=== PATIENT | female | born 1945 | race Caucasian/White ===

== ENCOUNTER 2016-11-23 10:46 | Inpatient (IN) | payer MEDICARE, OTHER ==
[~2016-11-23] VITALS: Ht 162.6 cm; Wt 94.0 kg
[2016-11-23] VITALS (29 sets, daily range): BP systolic 125–222; BP diastolic 66–96; PULSE 54–76; RESP 18–22; TEMP 97.8–98; O2SAT 88–97
--- NOTE | 2016-11-23 10:55 | PD ---
HPI Chief Complaint: Respiratory Symptoms Time Seen by Provider: 10:50 Travel History International Travel<30 days: No Contact w/Intl Traveler<30days: No Traveled to known affect area: No History of Present Illness HPI The patient is a 71-year-old female who presents to the emergency department via EMS for shortness of breath. The patient states she developed shortness of breath last night, she used her nebulizers at home with minimal alleviation of her symptoms. The patient does have a history of COPD/ bronchitis and continues to smoke one half a pack of cigarettes per day. The patient cannot recall the last time she was on oral steroids. The patient does complain of a productive cough producing ricci sputum without any hemoptysis. The patient denies any chest pain, nausea, vomiting, or abdominal pain. She denies any edema of the lower extremities. The patient denies any known history of pulmonary embolism or DVT. Patient does have a history of previous CVA and is followed by Dr. Handy. The patient's primary physician is Dr. Jennings. Symptoms are moderate, no known exacerbating factors, partially alleviated with breathing treatments by EMS. The patient did receive Solu- Medrol 125 mg intravenously and one albuterol nebulizer prior to arrival. PFSH Past Medical History Narrative Medical Hypertension, CVA, COPD Respiratory: Yes ?: Not Social History Tobacco Use: Yes (half pack of cigarettes per day) Allergies-Medications (Allergen,Severity, Reaction): Coded Allergies: Penicillin (Verified Allergy, Severe, Hives, 11/23/16) Prednisone (Verified Allergy, Severe, Shortness of Breath, 11/23/16) Tramadol (Verified Allergy, Severe, Nausea/Vomiting, 11/23/16) Reported Meds & Prescriptions Reported Meds & Active Scripts Active Reported Xanax (Alprazolam) 0.25 Mg Tab 0.25 Mg PO BID PRN Carvedilol 6.25 Mg Tab 6.25 Mg PO BID Simvastatin 40 Mg Tab 40 Mg PO HS Pioglitazone (Pioglitazone HCl) 45 Mg Tab 45 Mg PO DAILY Ditropan (Oxybutynin Chloride) 5 Mg Tab 5 Mg PO Q12HR Montelukast (Montelukast Sodium) 10 Mg Tab 10 Mg PO HS Metformin (Metformin HCl) 850 Mg Tab 850 Mg PO BID With a meal Duoneb (Ipratropium-Albuterol Neb) 0.5-2.5 Mg/3 Ml Neb 1 Nebule INH Q6HR NEB Losartan (Losartan Potassium) 100 Mg Tab 100 Mg PO DAILY Meloxicam 7.5 Mg Tab 7.5 Mg PO BID Ranitidine (Ranitidine HCl) 150 Mg Tab 150 Mg PO DAILY Gabapentin 100 Mg Cap 100 Mg PO BID Citalopram (Citalopram Hydrobromide) 20 Mg Tab 20 Mg PO DAILY Review of Systems Except as stated in HPI: all other systems reviewed are Neg General / Constitutional: No: Fever HENT: No: Lightheadedness Cardiovascular: No: Chest Pain or Discomfort Respiratory: Positive: Cough, Shortness of Breath Gastrointestinal: No: Nausea, Vomiting, Abdominal Pain Musculoskeletal: No: Weakness, Edema Neurologic: No: Dizziness Physical Exam Narrative GENERAL: Awake, alert, 71-year-old female who appears her stated age and is in no obvious respiratory distress. SKIN: Warm and dry. HEAD: Atraumatic. Normocephalic. EYES: No injection or drainage. ENT: No nasal bleeding or discharge. Mucous membranes pink and moist. NECK: Trachea midline. No JVD. CARDIOVASCULAR: Regular rate and rhythm. No murmur appreciated. Heart rate in the 60s. RESPIRATORY: No accessory muscle use. Few crackles with prolonged expiratory phase at the base. GASTROINTESTINAL: Abdomen soft, non-tender, nondistended. Obese, no rebound tenderness. MUSCULOSKELETAL: No obvious deformities. No clubbing. No cyanosis. No edema. NEUROLOGICAL: Awake and alert. No obvious cranial nerve deficits. Motor grossly within normal limits. Normal speech. PSYCHIATRIC: Appropriate mood and affect; insight and judgment normal. Data Data Last Documented VS Vital Signs Date Time Temp Pulse Resp B/P Pulse Ox O2 Delivery O2 Flow Rate FiO2 11/23/16 11:52 69 20 193/89 92 Nasal Cannula 2 11/23/16 10:49 97.8 Orders Complete Blood Count With Diff (11/23/16 10:50) Comprehensive Metabolic Panel (11/23/16 10:50) B-Type Natriuretic Peptide (11/23/16 10:50) Magnesium (Mg) (11/23/16 10:50) Ckmb (Isoenzyme) Profile (11/23/16 10:50) Troponin I (11/23/16 10:50) Iv Access Insert/Monitor (11/23/16 10:50) Electrocardiogram (11/23/16 10:50) Ecg Monitoring (11/23/16 10:50) Oximetry (11/23/16 10:50) Oxygen Administration (11/23/16 10:50) Chest, Single Ap (11/23/16 10:50) Sodium Chloride 0.9% Flush (Ns Flush) (11/23/16 11:00) Albuterol-Ipratropium Neb (Duoneb Neb) (11/23/16 11:00) Enalaprilat Inj (Vasotec Inj) (11/23/16 11:15) Furosemide Inj (Lasix Inj) (11/23/16 11:45) Aspirin Chew (Aspirin Chew) (11/23/16 11:45) Nitroglycerin-Dextrose Inj (Nitroglyceri (11/23/16 11:45) Admit To Inpatient (11/23/16 ) Vital Signs (Adult) Q4H (11/23/16 12:26) ^ Peritoneal Dialysis Registered Nurse / Telemetry (11/23/16 ) Albuterol-Ipratropium Neb (Duoneb Neb) (11/23/16 16:00) Albuterol Neb (Albuterol Neb) (11/23/16 12:30) Budeson-Formot 160-4.5 Mg Inh (Symbicort (11/23/16 21:00) Methylprednisolone So Succ Inj (Solumedr (11/23/16 13:00) Nicotine 21 Mg Patch.24 Hr (Habitrol 21 (11/23/16 12:30) Sputum Culture And Gram Stain (11/23/16 12:26) Resp Pulse Oximetry (11/23/16 ) Resp Oxygen Edgard C Titrat 1-4 L (11/23/16 ) Inpatient Certification (11/23/16 ) Levofloxacin (Levaquin) (11/23/16 12:30) Vital Signs (Adult) Q4H (11/23/16 12:26) Activity Oob With Assistance (11/23/16 12:26) ^ Peritoneal Dialysis Registered Nurse / Telemetry .CONTINUOUS (11/23/16 12:26) Intake + Output KAJAL.QSHIFT (11/23/16 12:26) Sodium Chloride 0.9% Flush (Ns Flush) (11/23/16 12:30) Sodium Chloride 0.9% Flush (Ns Flush) (11/23/16 21:00) Ondansetron Inj (Zofran Inj) (11/23/16 12:30) Docusate Sodium (Colace) (11/23/16 21:00) Magnesium Hydroxide Liq (Milk Of Magnesi (11/23/16 12:30) Basic Metabolic Panel (Bmp) (11/24/16 06:00) Pt Request For Service (11/23/16 12:26) Enoxaparin Inj (Lovenox Inj) (11/23/16 13:00) Naloxone Inj (Narcan Inj) (11/23/16 12:30) Alprazolam (Xanax) (11/23/16 12:45) Carvedilol (Coreg) (11/23/16 21:00) Citalopram (Celexa) (11/24/16 09:00) Gabapentin (Neurontin) (11/23/16 21:00) Losartan (Cozaar) (11/24/16 09:00) Montelukast (Singulair) (11/23/16 21:00) Oxybutynin (Ditropan) (11/23/16 21:00) Pravastatin (Pravachol) (11/23/16 21:00) Diet 1999 Ada Cons Carb (11/23/16 Lunch) Bedside Glucose KAJAL.AC&HS (11/23/16 12:34) ^ Blood Glucose Goal (Criteria (11/23/16 12:34) ^ Hypoglycemia 51 - 69 Mg/Dl (11/23/16 12:34) ^ Hypoglycemia 50 Mg/Dl Or < (11/23/16 12:34) ^ Notify Dr: Other (11/23/16 12:34) Dextrose 50% In Skip (Vial) Inj (D50w (Vi (11/23/16 12:45) Glucagon Inj (Glucagon Inj) (11/23/16 12:45) Insulin Aspart Supplemtl Scale (Novolog (11/23/16 16:00) Consult Cardiology (11/23/16 ) Admit Order (Ed Use Only) (11/23/16 12:42) Heparin Infusion KAJAL.Q1H (11/23/16 12:42) Heparin Inj (Heparin Inj) (11/23/16 12:45) Heparin Inj (Heparin Inj) (11/23/16 18:45) Heparin Inj (Heparin Inj) (11/23/16 18:45) Heparin-D5w Inj (Heparin-D5w Inj) (11/23/16 12:45) Act Partial Throm Time (Ptt) (11/23/16 12:42) Prothrombin Time / Inr (Pt) (11/23/16 12:42) Cbc No Diff, Includes Plts (11/23/16 12:42) Cbc No Diff, Includes Plts (11/26/16 06:00) Act Partial Throm Time (Ptt) (11/23/16 19:42) Occult Blood (Hemoccult) Stool (11/23/16 12:42) Remove Old Patch (11/24/16 09:00) Famotidine (Pepcid) (11/24/16 09:00) Labs Laboratory Tests Test 11/23/16 10:55 White Blood Count 9.7 TH/MM3 Red Blood Count 3.70 MIL/MM3 Hemoglobin 11.6 GM/DL Hematocrit 34.5 % Mean Corpuscular Volume 93.3 FL Mean Corpuscular Hemoglobin 31.4 PG Mean Corpuscular Hemoglobin 33.7 % Concent Red Cell Distribution Width 13.7 % Platelet Count 238 TH/MM3 Mean Platelet Volume 7.3 FL Neutrophils (%) (Auto) 75.8 % Lymphocytes (%) (Auto) 12.2 % Monocytes (%) (Auto) 6.8 % Eosinophils (%) (Auto) 1.6 % Basophils (%) (Auto) 3.6 % Neutrophils # (Auto) 7.3 TH/MM3 Lymphocytes # (Auto) 1.2 TH/MM3 Monocytes # (Auto) 0.7 TH/MM3 Eosinophils # (Auto) 0.2 TH/MM3 Basophils # (Auto) 0.3 TH/MM3 CBC Comment DIFF FINAL Differential Comment Sodium Level 144 MEQ/L Potassium Level 4.0 MEQ/L Chloride Level 108 MEQ/L Carbon Dioxide Level 26.8 MEQ/L Anion Gap 9 MEQ/L Blood Urea Nitrogen 16 MG/DL Creatinine 1.20 MG/DL Estimat Glomerular Filtration 45 ML/MIN Rate Random Glucose 136 MG/DL Calcium Level 8.4 MG/DL Magnesium Level 1.9 MG/DL Total Bilirubin 0.7 MG/DL Aspartate Amino Transf 13 U/L (AST/SGOT) Alanine Aminotransferase 12 U/L (ALT/SGPT) Alkaline Phosphatase 63 U/L Total Creatine Kinase 73 U/L Troponin I 0.30 NG/ML B-Type Natriuretic Peptide 875 PG/ML Total Protein 7.2 GM/DL Albumin 3.0 GM/DL [facility] Medical Decision Making Medical Screen Exam Complete: Yes Emergency Medical Condition: Yes Medical Record Reviewed: Yes Interpretation(s) EKG reveals normal sinus rhythm with a rate of 62. Left bundle branch block. Laboratory Tests Test 11/23/16 10:55 White Blood Count 9.7 TH/MM3 Red Blood Count 3.70 MIL/MM3 Hemoglobin 11.6 GM/DL Hematocrit 34.5 % Mean Corpuscular Volume 93.3 FL Mean Corpuscular Hemoglobin 31.4 PG Mean Corpuscular Hemoglobin 33.7 % Concent Red Cell Distribution Width 13.7 % Platelet Count 238 TH/MM3 Mean Platelet Volume 7.3 FL Neutrophils (%) (Auto) 75.8 % Lymphocytes (%) (Auto) 12.2 % Monocytes (%) (Auto) 6.8 % Eosinophils (%) (Auto) 1.6 % Basophils (%) (Auto) 3.6 % Neutrophils # (Auto) 7.3 TH/MM3 Lymphocytes # (Auto) 1.2 TH/MM3 Monocytes # (Auto) 0.7 TH/MM3 Eosinophils # (Auto) 0.2 TH/MM3 Basophils # (Auto) 0.3 TH/MM3 CBC Comment DIFF FINAL Differential Comment Sodium Level 144 MEQ/L Potassium Level 4.0 MEQ/L Chloride Level 108 MEQ/L Carbon Dioxide Level 26.8 MEQ/L Anion Gap 9 MEQ/L Blood Urea Nitrogen 16 MG/DL Creatinine 1.20 MG/DL Estimat Glomerular Filtration 45 ML/MIN Rate Random Glucose 136 MG/DL Calcium Level 8.4 MG/DL Magnesium Level 1.9 MG/DL Total Bilirubin 0.7 MG/DL Aspartate Amino Transf 13 U/L (AST/SGOT) Alanine Aminotransferase 12 U/L (ALT/SGPT) Alkaline Phosphatase 63 U/L Total Creatine Kinase 73 U/L Troponin I 0.30 NG/ML B-Type Natriuretic Peptide 875 PG/ML Total Protein 7.2 GM/DL Albumin 3.0 GM/DL Differential Diagnosis Differential diagnosis includes COPD exacerbation, bronchitis, pneumonia, acute coronary syndrome, pulmonary embolism, pleural effusion, pericardial effusion, congestive heart failure. Narrative Course IV was established, labs are drawn and sent, and the patient was placed on cardiac telemetry monitoring and continuous pulse oximetry monitoring. EKG was ordered and interpreted. Chest x-ray was ordered. The patient received Solu- Medrol and 1 albuterol nebulizer by EMS prior to arrival. Therefore, patient was surgery [facility] while in the emergency department. The patient's EKG reveals left bundle branch block, no old EKG to compare. X-ray reveals interstitial and alveolar infiltrates greater in the right lower lobe. The patient's blood pressure initially was elevated, the patient was administered Vasotec. The patient's BNP is elevated greater than 800 and troponin is 0.30. Creatinine is mildly elevated at 1.2. Patient does have a history of hypertension and tobacco use. The patient was administered aspirin. Blood pressure was reevaluated and the patient was placed on Nitropaste. The patient does have left bundle-branch block, unsure if this is old or new, with elevated troponin of 0.30, elevated BNP of 875, and chest x-ray the reveals bilateral interstitial infiltrates consistent with pulmonary edema. Patient has no known history of congestive heart failure. Therefore, the on- call laundry machine operator, Dr. Trivedi, was paged at 11:40 AM. The patient most likely will need echocardiogram and possible cardiac catheterization. I discussed the patient Dr. Barrera who agrees with admission. I discussed the patient with Dr. Trivedi who agrees with admission and transfer to [facility] as patient may need cardiac catheterization. The patient was placed on a heparin drip. The patient will be transferred to the cardiac intensive care unit at [facility]. Critical Care Narrative Aggregate critical care time was 35 minutes. Time to perform other separately billable procedures was not included in the critical care time. My time did not include minutes spent treating any other patients simultaneously or on activities that did not directly contribute to the patient's treatment. The services I provided to this patient were to treat and/or prevent clinically significant deterioration that could result in: Anoxia, hypoxia, ischemia, arrhythmia, . I provided critical care services requiring my management, as noted below: Chart data review, documentation time, medication orders and management, vital sign assessments/reviewing monitor data, ordering and reviewing lab tests, ordering and interpreting/reviewing x-rays and diagnostic studies, care of the patient and discussion of the patient with the admitting physicians. Physician Communication Physician Communication The on-call hospitalist was paged for admission. I discussed the patient Dr. Barrera who agrees with admission. Diagnosis Primary Impression: Congestive heart failure Qualified Code: I50.9 - Acute congestive heart failure, unspecified congestive heart failure type Additional Impressions: Elevated troponin Dyspnea Qualified Code: R06.00 - Dyspnea, unspecified type Admitting Information Admitting Physician Requests: Admit Condition: Stable Morris Johnson MD Nov 23, 2016 10:55
[2016-11-23] MEDS: RESP: ALBUTEROL 2.5 MG/IPRATROPIUM 0.5 MG NEB (SCH) INH ×4 (10:59→21:38)
[2016-11-23 11:03] LABS: AUTOMATED NEUTROPHIL # 7.3 TH/MM3 (1.8-7.7); BASOPHIL # 0.3 TH/MM3 (0-0.2); BASOPHIL % 3.6 % (0.0-2.0); EOSINOPHIL # 0.2 TH/MM3 (0-0.4); EOSINOPHIL % 1.6 % (0.0-4.0); HEMATOCRIT 34.5 % (35.0-46.0); LYMPH % 12.2 % (9.0-44.0); LYMPHOCYTE # 1.2 TH/MM3 (1.0-4.8); MEAN CELL VOLUME 93.3 FL (80.0-100.0); MEAN CORPUSCULAR HEMOGLOBIN 31.4 PG (27.0-34.0); MEAN CORPUSCULAR HGB CONC 33.7 % (32.0-36.0); MONO % 6.8 % (0.0-8.0); NEUT % 75.8 % (16.0-70.0); PLATELET COUNT 238 TH/MM3 (150-450); RED CELL DISTRIBUTION WIDTH 13.7 % (11.6-17.2); WHITE BLOOD COUNT 9.7 TH/MM3 (4.0-11.0)
[2016-11-23] MEDS ORDERED: SIMV40TA PO (11:03)
[2016-11-23] MEDS ORDERED: MONT10TA4 PO (11:03)
[2016-11-23] MEDS ORDERED: LOSA100T PO (11:03)
[2016-11-23] MEDS ORDERED: IPRASOL INH (11:03)
[2016-11-23] MEDS ORDERED: METF850T PO (11:03)
[2016-11-23] MEDS ORDERED: PIOG45TA3 PO (11:03)
[2016-11-23] MEDS ORDERED: GABA100C4 PO (11:03)
[2016-11-23] MEDS ORDERED: ALPR.25 PO (11:03)
[2016-11-23] MEDS ORDERED: CITA20TA4 PO (11:03)
[2016-11-23] MEDS ORDERED: MELO7.5T4 PO (11:03)
[2016-11-23] MEDS ORDERED: RANI150T PO (11:03)
[2016-11-23] MEDS ORDERED: OXYB5TAB10 PO (11:03)
[2016-11-23] MEDS ORDERED: CARV6.252 PO (11:03)
[2016-11-23 11:04] LABS: HEMO FLAGS DIFF FINAL
[2016-11-23 11:12] LABS: CHLORIDE 108 MEQ/L (98-107); SODIUM (NA) 144 MEQ/L (136-145)
[2016-11-23] MEDS ORDERED: ENALAPRILAT 2.5 MG/2 ML VIAL IV PUSH ONE (11:15)
[2016-11-23 11:16] LABS: ANION GAP 9 MEQ/L (5-15); BICARBONATE 26.8 MEQ/L (21.0-32.0); BLOOD UREA NITROGEN 16 MG/DL (7-18); MAGNESIUM 1.9 MG/DL (1.5-2.5)
[2016-11-23 11:19] LABS: ALT (GPT) 12 U/L (10-53); AST (GOT) 13 U/L (15-37); GLOMERULAR FILTRATION RATE 45 ML/MIN (>89)
[2016-11-23 11:20] LABS: TOTAL BILIRUBIN ADULT 0.7 MG/DL (0.2-1.0)
[2016-11-23 11:22] LABS: ALKALINE PHOSPHATASE 63 U/L (45-117); CREATINE KINASE 73 U/L (26-192)
[2016-11-23] MEDS: SODIUM CHLORIDE 0.9% FLUSH 5 ML FLUSH IVF PRN ×2 (11:27→11:50)
--- NOTE | 2016-11-23 11:30 | RADHPO ---
EXAM DATE/TIME: 11/23/2016 11:12 [facility] COMPARISON: No previous studies available for comparison. INDICATIONS : Difficulty breathing. MEDICAL HISTORY : Chronic obstructive pulmonary disease. SURGICAL HISTORY : None. ENCOUNTER: Initial ACUITY: 2 days PAIN SCORE: 3/10 LOCATION: Bilateral chest FINDINGS: A single view of the chest demonstrates diffuse interstitial densities. Airspace disease right lower lobe. Heart normal in size. Osseous structures are intact. CONCLUSION: Interstitial and alveolar infiltrates greater in the right lower lobe. Nicholas Jones MD on November 23, 2016 at 11:28 Board Certified Radiologist. This report was verified electronically.
[2016-11-23] MEDS ORDERED: ASPIRIN 81 MG CHEW TAB CHEW ONE (11:45)
[2016-11-23] MEDS ORDERED: FUROSEMIDE 20 MG/2 ML VIAL IV PUSH ONE (11:45)
[2016-11-23] MEDS: NITROGLYCERIN-DEXTROSE INJ 250 ML IV SCH (11:50)
[2016-11-23] MEDS ORDERED: NALOXONE HCL 0.4 MG/ML AMP IV PRN (12:30)
[2016-11-23] MEDS ORDERED: SODIUM CHLORIDE 0.9% FLUSH 5 ML FLUSH IVF PRN (12:30)
[2016-11-23] MEDS ORDERED: RESP: ALBUTEROL 2.5 MG/3 ML NEB (PRN) INH (12:30)
[2016-11-23] MEDS ORDERED: ONDANSETRON HCL 4 MG/2 ML VIAL IVP PRN (12:30)
[2016-11-23] MEDS ORDERED: LEVOFLOXACIN 750 MG TAB PO SCH (12:30)
[2016-11-23] MEDS ORDERED: SODIUM CHLORIDE 0.9% FLUSH 5 ML FLUSH FLUSH PRN (12:30)
[2016-11-23] MEDS ORDERED: DEXTROSE 50% IN WATER 50 ML VIAL(D50) IV PUSH PRN (12:45)
[2016-11-23] MEDS ORDERED: HEPARIN SODIUM - IV 10,000 UNITS/10 ML VIAL IV ONE (12:45)
[2016-11-23] MEDS ORDERED: GLUCAGON 1 MG/ML VIAL OTHER PRN (12:45)
[2016-11-23] MEDS ORDERED: HEPARIN-D5W INJ 250 ML IV SCH (12:45)
[2016-11-23] MEDS ORDERED: methylPREDNISolone SOD SUCC 125 MG/2 ML VIAL IVP SCH (13:00)
[2016-11-23] MEDS ORDERED: ENOXAPARIN SODIUM 40 MG/0.4 ML SYRINGE SQ SCH (13:00)
[2016-11-23] MEDS: NICOTINE 21 MG/24 HR PATCH TD SCH (13:11)
[2016-11-23 13:14] LABS: HEMATOCRIT 35.6 % (35.0-46.0); MEAN CELL VOLUME 90.9 FL (80.0-100.0); MEAN CORPUSCULAR HEMOGLOBIN 30.9 PG (27.0-34.0); MEAN CORPUSCULAR HGB CONC 33.9 % (32.0-36.0); PLATELET COUNT 245 TH/MM3 (150-450); RED BLOOD COUNT 3.91 MIL/MM3 (4.00-5.30); RED CELL DISTRIBUTION WIDTH 13.7 % (11.6-17.2); WHITE BLOOD COUNT 9.4 TH/MM3 (4.0-11.0)
[2016-11-23 13:19] LABS: REVIEW FLAG FINAL
--- NOTE | 2016-11-23 15:06 | HHI.HP ---
[facility] Lewis Jennings DO Admission Diagnosis new onset congestive heart failure, elevated troponin, dyspnea Diagnoses: (1) Dyspnea (2) Elevated troponin (3) Congestive heart failure Travel History International Travel<30 Days: No Contact w/Intl Traveler <30 Da: No Traveled to Known Affected Are: No History of Present Illness This is a pleasant 71 year-old female with past medical history of COPD, history of stroke, type 2 diabetes, hypertension who presented to the ER today complaining of a one-day history of gradually increasing shortness of breath. The patient states that last night she noticed that she started to feel short of breath and this increased overnight until she was moderately short of breath today. She does have a chronic cough which she states currently is productive of ricci sputum. She denies fever or chills. She denies wheezing. She denies any chest pain or chest pressure. However she does state several weeks ago she had transient chest pain which was retrosternal and lasted only a few seconds and she didn't think anything of it. She denies known history of CHF. No recent pedal edema. No provocative or alleviating factors for the shortness of breath. In the emergency department chest x-ray revealed diffuse interstitial densities and airspace disease of the right lower lobe. BNP was elevated at 875. Troponin was elevated at 0.3. The patient was given 20 mg of IV Lasix and has been started on nitroglycerin and heparin drip. The ER physician discussed with the on-call relay mechanic Dr. Trivedi who requested transfer to the main facility for consideration of left heart catheterization. Review of Systems ROS Limitations: Poor Historian Constitutional: DENIES: Fever, Chills Ears, nose, mouth, throat: DENIES: Throat pain, Running Nose Respiratory: COMPLAINS OF: Cough, Sputum production Cardiovascular: COMPLAINS OF: Chest pain, Dyspnea on Exertion, DENIES: Palpitations, PND, Lower Extremity Edema Gastrointestinal: DENIES: Abdominal pain, Diarrhea, Nausea, Vomiting Genitourinary: DENIES: Hematuria, Dysuria Musculoskeletal: DENIES: Back pain, Neck pain Integumentary: DENIES: Pruritus, Rash Neurologic: DENIES: Abnormal gait, Headache Psychiatric: DENIES: Anxiety, Confusion Past Family Social History Past Medical History COPD CVA in the past Hypertension GERD Depression Type 2 diabetes Hyperlipidemia Reported Medications Allergies Coded Allergies Type Severity Reaction Last Updated Verified Penicillin Allergy Severe Hives 11/23/16 Yes Prednisone Allergy Severe Shortness of Breath 11/23/16 Yes Tramadol Allergy Severe Nausea/Vomiting 11/23/16 Yes Active Scripts Medications Dose Route/Sig Days Date Category Dose Instructions Xanax (Alprazolam) 0.25 Mg Tab 0.25 Mg PO BID PRN 11/23/16 Reported Carvedilol 6.25 Mg Tab 6.25 Mg PO BID 11/23/16 Reported Simvastatin 40 Mg Tab 40 Mg PO HS 11/23/16 Reported Pioglitazone (Pioglitazone HCl) 45 Mg Tab 45 Mg PO DAILY 11/23/16 Reported Ditropan (Oxybutynin Chloride) 5 Mg Tab 5 Mg PO Q12HR 11/23/16 Reported Montelukast (Montelukast Sodium) 10 Mg Tab 10 Mg PO HS 11/23/16 Reported Metformin (Metformin HCl) 850 Mg Tab 850 Mg PO BID 11/23/16 Reported With a meal Duoneb (Ipratropium-Albuterol Neb) 0.5-2.5 Mg/3 Ml Neb 1 Nebule INH Q6HR NEB 11/23/16 Reported Losartan (Losartan Potassium) 100 Mg Tab 100 Mg PO DAILY 11/23/16 Reported Meloxicam 7.5 Mg Tab 7.5 Mg PO BID 11/23/16 Reported Ranitidine (Ranitidine HCl) 150 Mg Tab 150 Mg PO DAILY 11/23/16 Reported Gabapentin 100 Mg Cap 100 Mg PO BID 11/23/16 Reported Citalopram (Citalopram Hydrobromide) 20 Mg Tab 20 Mg PO DAILY 11/23/16 Reported Allergies: Coded Allergies: Penicillin (Verified Allergy, Severe, Hives, 11/23/16) Prednisone (Verified Allergy, Severe, Shortness of Breath, 11/23/16) Tramadol (Verified Allergy, Severe, Nausea/Vomiting, 11/23/16) Family History Reviewed and noncontributory Social History No current alcohol tobacco or drug use Physical Exam Vital Signs Vital Signs Date Time Temp Pulse Resp B/P Pulse Ox O2 Delivery O2 Flow Rate FiO2 11/23/16 13:22 65 95 Nasal Cannula 2 11/23/16 13:15 66 20 173/81 95 Nasal Cannula 2 11/23/16 12:45 64 20 179/81 95 Nasal Cannula 2 11/23/16 12:15 64 18 195/89 95 Nasal Cannula 2 11/23/16 12:00 172/75 11/23/16 11:52 69 20 193/89 92 Nasal Cannula 2 11/23/16 11:07 69 20 205/96 96 Aerosol Mask 11/23/16 11:04 97 Nasal Cannula 2 11/23/16 10:59 91 Nasal Cannula 2.00 11/23/16 10:51 69 22 88 Room Air 11/23/16 10:49 97.8 69 22 222/94 88 Physical Exam GENERAL: Well-nourished, well-developed obese elderly female patient. SKIN: Warm and dry. HEAD: Normocephalic. EYES: No scleral icterus. No injection or drainage. NECK: Supple, trachea midline. No JVD or lymphadenopathy. CARDIOVASCULAR: Regular rate and rhythm without murmurs, gallops, or rubs. RESPIRATORY: Breath sounds equal bilaterally and clear to auscultation bilaterally. No accessory muscle use. GASTROINTESTINAL: Abdomen soft, non-tender, nondistended. EXTREMITIES: No cyanosis, or edema. NEUROLOGICAL: Awake, alert, and oriented x 3. Non-focal. Laboratory Laboratory Tests Test 11/23/16 11/23/16 10:55 13:05 White Blood Count 9.7 9.4 Red Blood Count 3.70 3.91 Hemoglobin 11.6 12.1 Hematocrit 34.5 35.6 Mean Corpuscular Volume 93.3 90.9 Mean Corpuscular Hemoglobin 31.4 30.9 Mean Corpuscular Hemoglobin 33.7 33.9 Concent Red Cell Distribution Width 13.7 13.7 Platelet Count 238 245 Mean Platelet Volume 7.3 7.4 Neutrophils (%) (Auto) 75.8 Lymphocytes (%) (Auto) 12.2 Monocytes (%) (Auto) 6.8 Eosinophils (%) (Auto) 1.6 Basophils (%) (Auto) 3.6 Neutrophils # (Auto) 7.3 Lymphocytes # (Auto) 1.2 Monocytes # (Auto) 0.7 Eosinophils # (Auto) 0.2 Basophils # (Auto) 0.3 CBC Comment DIFF FINAL Differential Comment Sodium Level 144 Potassium Level 4.0 Chloride Level 108 Carbon Dioxide Level 26.8 Anion Gap 9 Blood Urea Nitrogen 16 Creatinine 1.20 Estimat Glomerular Filtration 45 Rate Random Glucose 136 Calcium Level 8.4 Magnesium Level 1.9 Total Bilirubin 0.7 Aspartate Amino Transf 13 (AST/SGOT) Alanine Aminotransferase 12 (ALT/SGPT) Alkaline Phosphatase 63 Total Creatine Kinase 73 Troponin I 0.30 B-Type Natriuretic Peptide 875 Total Protein 7.2 Albumin 3.0 Prothrombin Time 11.0 Prothromb Time International 1.0 Ratio Activated Partial 31.0 Thromboplast Time Result Diagram: 11/23/16 1305 11/23/16 1055 Imaging Last Impressions Chest X-Ray 11/23/16 1050 Signed Impressions: Service Date/Time: , November 23, 2016 11:12 - CONCLUSION: Interstitial and alveolar infiltrates greater in the right lower lobe. Nicholas Jones MD Assessment and Plan Assessment and Plan -Dyspnea - she appears to have pulmonary edema and possibly new onset CHF on chest x-ray. We'll get a 2-D echocardiogram to ascertain if this is diastolic or systolic. Her blood pressure was markedly out of control when she came to the ER. Additionally she has elevated troponin of 0.3 without EKG changes which may be a NSTEMI. [facility]. We'll continue with heparin and nitroglycerin drip as per cardiology recommendations. 2-D echocardiogram has been ordered. She's been given Lasix 20 mg IV push and I am reluctant to do more than that given her renal insufficiency and she appears comfortable on exam not in any respiratory distress. We'll repeat a BMP in the morning as well as cxr and consider further diuresis at that time. We'll check a lipid profile and continue aspirin and statin and beta sam. -Elevated creatinine possible acute versus chronic kidney disease. We'll repeat a BMP in the morning. -COPD - no wheezing on exam. Given dyspnea will treat with Solu-Medrol. --Possible pneumonia. Continue treatment with Levaquin. Repeat chest x-ray in the morning. I personally reviewed her chest x-ray today and appears more consistent with pulmonary edema. -CVA in the past - start aspirin, continue statin. -Hypertension - uncontrolled. continue losartan and Coreg. Use clonidine when necessary. -GERD - continue ranitidine. -Depression - continue Celexa. -Type 2 diabetes - hold metformin. Use sliding scale insulin. Will start on Levemir 5 units subcutaneous at bedtime as she is on steroids. -DVT prophylaxis with SCDs. Also on heparin drip. Problem Qualifiers (1) Dyspnea: Qualified Code: R06.00 - Dyspnea, unspecified type (2) Congestive heart failure: Qualified Code: I50.9 - Acute congestive heart failure, unspecified congestive heart failure type Inez Barrera MD Nov 23, 2016 15:06
[2016-11-23] MEDS: INSULIN ASPART SUPPLEMENTAL SCALE SQ SCH ×2 (16:12→21:38)
[2016-11-23] MEDS ORDERED: cloNIDine HCL 0.1 MG TAB PO ONE (16:30)
[2016-11-23] MEDS ORDERED: HEPARIN SODIUM - IV 10,000 UNITS/10 ML VIAL IV PRN ×2 (18:45)
[2016-11-23 19:20] LABS: APTT (PATIENT) 57.6 SEC (24.3-30.1)
[2016-11-23 19:24] LABS: HDL CHOLESTEROL 39.8 MG/DL (40.0-60.0)
[2016-11-23] MEDS ORDERED: SODIUM CHLORIDE 0.9% FLUSH 5 ML FLUSH IVF SCH (21:00)
[2016-11-23] MEDS: SODIUM CHLORIDE 0.9% FLUSH 5 ML FLUSH FLUSH SCH (21:00)
[2016-11-23] MEDS: PRAVASTATIN SOD 80 MG TAB PO SCH (21:35)
[2016-11-23] MEDS: MONTELUKAST SODIUM 10 MG TAB PO SCH (21:36)
[2016-11-23] MEDS: GABAPENTIN 100 MG CAP PO SCH (21:36)
[2016-11-23] MEDS: DOCUSATE SODIUM 100 MG CAP PO SCH (21:36)
[2016-11-23] MEDS: OXYBUTYNIN CHLORIDE 5 MG TAB PO SCH (21:36)
[2016-11-23] MEDS: CARVEDILOL 6.25 MG TAB PO SCH (21:36)
[2016-11-24] VITALS (24 sets, daily range): BP systolic 138–165; BP diastolic 65–76; PULSE 60–69; RESP 18–22; TEMP 97.6–97.9; O2SAT 96–99
[2016-11-24] MEDS: MORPHINE SULFATE 4 MG/ML INJ IV PUSH PRN (00:10)
[2016-11-24] MEDS: RESP: ALBUTEROL 2.5 MG/IPRATROPIUM 0.5 MG NEB (SCH) INH ×7 (00:10→23:54)
[2016-11-24] MEDS: BUDESONIDE-FORMOTEROL 160/4.5 MCG INHALER INH SCH ×3 (00:12→21:46)
[2016-11-24] MEDS: NITROGLYCERIN-DEXTROSE INJ 250 ML IV SCH ×3 (00:12→22:20)
[2016-11-24] MEDS: methylPREDNISolone SOD SUCC 40 MG/1 ML VIAL IVP SCH ×2 (01:18→13:00)
[2016-11-24 01:34] LABS: BICARBONATE 28.5 MEQ/L (21.0-32.0); POTASSIUM 3.4 MEQ/L (3.5-5.1)
[2016-11-24] MEDS: ALPRAZolam 0.25 MG TAB PO PRN (01:34)
--- NOTE | 2016-11-24 05:54 | RADRPT ---
EXAM DATE/TIME: 11/24/2016 04:31 [facility] COMPARISON: CHEST SINGLE AP, November 23, 2016, 11:12. INDICATIONS : Shortness of breath. MEDICAL HISTORY : Chronic obstructive pulmonary disease. SURGICAL HISTORY : None. ENCOUNTER: Subsequent ACUITY: 2 days PAIN SCORE: 0/10 LOCATION: chest FINDINGS: Improved aeration of the lower lungs with better delineation of the hemidiaphragms on prior. There i s some persistent mixed interstitial/alveolar infiltrate or atelectasis at the bases. The heart is n ormal in size. Stable deformity proximal right humerus. CONCLUSION: Improved aeration of the lower lungs with some residual non-consolidative infiltrates or atelectasis. Tylor Yang MD on November 24, 2016 at 5:51 Board Certified Radiologist. This report was verified electronically.
[2016-11-24] MEDS: INSULIN ASPART SUPPLEMENTAL SCALE SQ SCH ×4 (06:11→21:00)
[2016-11-24] MEDS: REMOVE OLD NICODERM (NICOTINE) PATCH TD SCH (09:00)
--- NOTE | 2016-11-24 10:04 | MB ---
cc: GAL MCCLURE DATE OF 1945 DATE OF CONSULTATION November 24, 2016 REASON FOR CONSULT Heart failure. HISTORY OF PRESENT ILLNESS A 71-year-old female with past medical history significant for COPD, chronic smoker, CVA in February of 2016, hypertension, hyperlipidemia, diabetes, who presented to the emergency department at [facility] complaining of worsening shortness of breath for the last couple of weeks. She reports her shortness of breath has been chronic. However, recently she traveled to [place] to bury her son which was very stressful for her and she was smoking more than usual and the shortness of breath got worse. Back in [place], the shortness of breath worsened to the point that she could not even walk for which she presented to the emergency department for further management and evaluation. She denied fever or chills. She does report some ricci sputum. She denies wheezing and she denies chest pain or palpitations, chest pressure or syncope, PND, orthopnea or leg edema. In the Emergency Department at [facility] a chest x-ray revealed diffuse interstitial densities and airspace disease in the right lower lobe. Her BNP was in the range of 175 with an elevated troponin of 0.3 for which Cardiology has been consulted for further management and evaluation. The patient has been transferred to the main [place]. Currently she remains still short of breath. She denies chest pain. She is hemodynamically stable. REVIEW OF SYSTEMS Negative except for what is mentioned in HPI. PAST MEDICAL HISTORY 1. COPD. 2. CVA in February 2016. 3. Hypertension. 4. Gastroesophageal reflux disease. 5. Depression. 6. Type 2 diabetes. 7. Hyperlipidemia. 8. PAD status post stent in the right SFA. CARDIOVASCULAR HOME MEDICATIONS 1. Coreg 6.25 mg p.o. b.i.d. 2. Losartan 100 mg p.o. daily. 3. Simvastatin 40 mg p.o. q.h.s. CARDIAC MEDICATIONS STARTED IN THE HOSPITAL 1. Aspirin. 2. Coreg. 3. Heparin drip. 4. Losartan. 5. Nitroglycerin drip. 6. Pravastatin sodium. 7. For her COPD she has been started on antibiotics as well as on - 8. IV methylprednisolone and 9. Albuterol inhalers. ALLERGIES PENICILLIN. PREDNISONE. TRAMADOL. FAMILY HISTORY Noncontributory. SOCIAL HISTORY She is a chronic smoker. PHYSICAL EXAMINATION Vital Signs: Temperature 97.6, respiratory rate 18, pulse 64, blood pressure 146 /65, O2 sat 98%. General: She is awake, alert, oriented x 3, in no acute distress, sitting in chair, daughter at bedside. Neck: There is no JVD, no carotid bruits. Heart: Regular rate and rhythm. No murmurs, rubs or gallops appreciated. Lungs: There are bilateral rales, poor inspiratory effort. No wheezing. Abdomen: Soft, nontender, nondistended. Obese with positive bowel sounds. Extremities: No cyanosis, no edema and pulses throughout. LABORATORY DATA Hemoglobin of 12, hematocrit of 35, platelet count of 245. INR 1. Chemistries: Sodium of 138, potassium 3.4, chloride 102, BUN 23, creatinine of 1.3. Troponin 0.3. BNP of 875. Triglyceride 150, cholesterol 146, LDL 76 and HDL 39. EKG Sinus rhythm with a left bundle branch block. ASSESSMENT AND PLAN 71-year-old female with cardiac risk factors that include smoking, CVA, hypertension, hyperlipidemia, diabetes and PAD who presents to the hospital with a worsening shortness of breath in the setting of increased smoking in the last couple of weeks giving increased stress from her son passing away. Currently she remains fairly hemodynamically stable. Troponin's increased at 0.3 and a BNP also increased with a level of 875. SOB has improved slightly with COPD treatment. Echo has been ordered, still pending. She currently says that she still complains of some shortness of breath. She denies any chest pain. As for her left bundle branch block, I do not know if it is new or old. I would think at this point given her risk factors on presentation it is reasonable to undergo left heart catheterization to better risk stratify CAD. The risks and benefits of left heart cath/intervention including but not limited to neurovascular trauma, bleeding, renal failure, MN, emergent CABG, stroke and have been explained to the patient and she is willing to proceed. We will keep the patient n.p.o. after breakfast. We with plan for at left heart cath later in the afternoon. In the meantime we will continue her optimization of medications for CAD including the heparin drip, the aspirin, the beta-blockers, the ARB and the statins. Thank you for the opportunity to participate in the care of this patient. We will follow up with you. Further therapy to be determined. MD WESTON Healy/JULIA /9:12 AM /9:[address] [facility]
[2016-11-24] MEDS: LOSARTAN 50 MG TAB PO SCH (10:05)
[2016-11-24] MEDS: CITALOPRAM HYDROBROMIDE 20 MG TAB PO SCH (10:05)
[2016-11-24] MEDS: FAMOTIDINE 20 MG TAB PO SCH (10:05)
[2016-11-24] MEDS: NICOTINE 21 MG/24 HR PATCH TD SCH (10:05)
[2016-11-24] MEDS: ASPIRIN EC 81 MG TABEC PO SCH (10:05)
[2016-11-24] MEDS: DOCUSATE SODIUM 100 MG CAP PO SCH ×2 (10:05→21:44)
[2016-11-24] MEDS: OXYBUTYNIN CHLORIDE 5 MG TAB PO SCH ×2 (10:05→21:44)
[2016-11-24] MEDS: SODIUM CHLORIDE 0.9% FLUSH 5 ML FLUSH FLUSH SCH (10:06)
[2016-11-24] MEDS: CARVEDILOL 6.25 MG TAB PO SCH ×2 (10:06→21:44)
[2016-11-24] MEDS: GABAPENTIN 100 MG CAP PO SCH ×2 (10:06→21:44)
[2016-11-24] MEDS ORDERED: HEPARIN-NS/PF INJ 500 ML ONE (12:54)
[2016-11-24] MEDS ORDERED: NITROGLYCERIN INJ 5 ML ONE (13:00)
[2016-11-24] MEDS ORDERED: MIDAZOLAM HCL 2 MG/2 ML VIAL ONE (13:00)
[2016-11-24] MEDS ORDERED: HEPARIN SODIUM - IV 10,000 UNITS/10 ML VIAL ONE (13:00)
[2016-11-24] MEDS ORDERED: VERAPAMIL HCL 5 MG/2 ML VIAL ONE (13:00)
[2016-11-24] MEDS ORDERED: IOHEXOL 350 MG/ML 100 ML BTL (for Cath Lab) OTHER ONE (13:17)
--- NOTE | 2016-11-24 13:22 | HHI.PR ---
Subjective Remarks Follow-up for shortness of breath Shortness of breath better today, still coughing but about the same. Afebrile. No chest pain, denies any palpitations. Objective Vitals Vital Signs Date Time Temp Pulse Resp B/P Pulse Ox O2 Delivery O2 Flow Rate FiO2 11/24/16 08:28 98 Nasal Cannula 2.00 11/24/16 06:00 64 11/24/16 05:00 64 11/24/16 04:00 64 11/24/16 03:00 97.6 65 18 146/65 96 11/24/16 03:00 65 11/24/16 02:00 62 11/24/16 01:00 65 11/24/16 00:00 69 11/23/16 23:00 66 11/23/16 22:00 66 11/23/16 21:38 97 Nasal Cannula 3.00 11/23/16 21:00 54 11/23/16 21:00 97.8 62 22 143/71 96 11/23/16 20:03 60 11/23/16 18:23 65 18 125/74 96 Nasal Cannula 2 11/23/16 18:10 170/82 11/23/16 17:57 72 20 157/66 96 Nasal Cannula 2 11/23/16 17:45 72 18 203/89 95 Nasal Cannula 2 11/23/16 17:30 217/81 11/23/16 17:20 76 20 170/76 96 Nasal Cannula 2 11/23/16 16:55 64 18 177/79 96 Nasal Cannula 2 11/23/16 16:30 96 Nasal Cannula 1.00 11/23/16 16:00 60 176/80 11/23/16 15:45 64 186/78 11/23/16 15:30 67 190/82 11/23/16 15:15 184/86 11/23/16 15:00 98.0 68 20 192/90 94 Nasal Cannula 2 11/23/16 14:30 74 20 198/88 95 Nasal Cannula 2 11/23/16 14:00 67 188/80 11/23/16 13:45 70 18 199/ 95 Nasal Cannula 2 11/23/16 13:22 65 95 Nasal Cannula 2 I/O 11/23/16 11/23/16 11/23/16 11/24/16 11/24/16 11/24/16 07:00 15:00 23:00 07:00 15:00 23:00 Intake Total 120 ml 1161 ml Output Total 700 ml 1000 ml 500 ml Balance -700 ml -880 ml 661 ml Intake Oral 120 ml 720 ml IV Total 441 ml Output Urine Total 700 ml 1000 ml 500 ml # Voids 1 2 Result Diagram: 11/23/16 1305 11/24/16 0114 Imaging Last Impressions Chest X-Ray 11/24/16 0600 Signed Impressions: Service Date/Time: Thursday, November 24, 2016 04:31 - CONCLUSION: Improved aeration of the lower lungs with some residual non-consolidative infiltrates or atelectasis. Tylor Yang MD Objective Remarks Not in distress, well-nourished, looks stated age PERRL, pink conjunctiva without injection, anicteric Nose without bleeding, airway patent, oropharynx clear Supple neck, no masses or thyromegaly, trachea midline Normal rate and regular rhythm, no murmurs gallops or rubs appreciated. Bilateral crackles at bases, Normal bowel sounds, soft, non-tender, nondistended, no guarding. Extremities without clubbing, cyanosis, trace to 1+ edema. No rash of generalized distribution. Skin is warm and dry. AAO x3, no cranial nerve deficits, moves all 4 extremities, no focal neurologic deficits, sleepy but arousable. A/P Problem List: (1) Dyspnea ICD Code: R06.00 Status: Acute (2) Elevated troponin ICD Code: R79.89 Status: Acute (3) Congestive heart failure ICD Code: I50.9 Status: Acute Assessment and Plan This is a 71-year-old female who presented with shortness of breath Shortness of breath likely secondary to CHF exacerbation-rule out pneumonia. Initial chest x-ray showed pulmonary edema. Repeat chest x-ray personally reviewed showed improvement of infiltrates, non-constitutive. Continue Lasix, check echocardiogram, recheck BMP, BNP elevated. Troponin [id number] elevated myocardial infarction likely demand mediated but cannot totally rule out ischemia. Creatinine is 1.34, cardiology following. EKG personally reviewed showed sinus rhythm and left bundle branch block. Unknown if LBBB is new, per cardiology, for left heart catheterization today. Continue aspirin, heparin, Coreg, statin, and losartan. Acute kidney failure-likely cardiorenal, restart Lasix, patient still have crackles and appears volume overloaded, will give another dose of Lasix 40 m IV 1 now, recheck BMP tomorrow. -900 cc overnight. Diabetes mellitus-hold by mouth prednisone and metformin, sliding scale insulin for now. Hypokalemia-replaced DVT prophylaxis: Heparin -Elevated creatinine possible acute versus chronic kidney disease. We'll repeat a BMP in the morning. -COPD - no wheezing on exam. Given dyspnea will treat with Solu-Medrol. --Possible pneumonia. Continue treatment with Levaquin. Repeat chest x-ray in the morning. I personally reviewed her chest x-ray today and appears more consistent with pulmonary edema. -CVA in the past - start aspirin, continue statin. -Hypertension - uncontrolled. continue losartan and Coreg. Use clonidine when necessary. -GERD - continue ranitidine. -Depression - continue Celexa. -Type 2 diabetes - hold metformin. Use sliding scale insulin. Will start on Levemir 5 units subcutaneous at bedtime as she is on steroids. -DVT prophylaxis with SCDs. Also on heparin drip. Problem Qualifiers (1) Dyspnea: Qualified Code: R06.00 - Dyspnea, unspecified type (2) Congestive heart failure: Qualified Code: I50.9 - Acute congestive heart failure, unspecified congestive heart failure type Norman Mejia MD Nov 24, 2016 13:22
[2016-11-24] MEDS ORDERED: POTASSIUM CHLORIDE 20 MEQ CONTROLLED RELEASE TAB PO ONE (14:00)
[2016-11-24] MEDS ORDERED: FUROSEMIDE 20 MG/2 ML VIAL IV PUSH ONE (14:00)
--- NOTE | 2016-11-24 14:25 | EKG ---
Date Performed: 11/23/2016 Time Performed: 11:00:56 PTAGE: 71 years EKG: Sinus rhythm Left axis deviation Left bundle branch block Abnormal ECG NO PREVIOUS TRACING DOCTOR: Kassi Moore Interpretating Date/Time 11/24/2016 14:21:46
[2016-11-24] MEDS ORDERED: CLOPIDOGREL 300 MG TAB ONE (14:44)
[2016-11-24] MEDS ORDERED: CLOPIDOGREL 300 MG TAB PO ONE (15:00)
[2016-11-24] MEDS ORDERED: MISC INFORMATION XX ONE (15:00)
[2016-11-24] MEDS ORDERED: SODIUM CHLORIDE 0.9% FLUSH 5 ML FLUSH IVF PRN (15:00)
--- NOTE | 2016-11-24 16:18 | MA ---
cc: GAL MCCLURE DATE: 11/24/2016. PROCEDURES PERFORMED: 1. Left heart catheterization. 2. Selective right and left coronary angiography. 3. Left ventriculogram. 4. Percutaneous coronary intervention to the OM #1. 5. Percutaneous coronary intervention to the distal circumflex artery. INDICATIONS FOR THE PROCEDURE: [id number] myocardial infarction, worsening shortness of breath NYHA III sx APPROACH: Right transradial. DESCRIPTION OF THE PROCEDURE IN DETAIL: Consent was signed. The patient was brought into the cardiac lab specialist in a fasting state. Using 1% lidocaine for local anesthesia and a micropuncture kit , a 6-Italian slender sheath was inserted into the right radial artery and an anti-spasmodic cocktail given. Then selective right and left coronary angiography was performed with a JR-4 and a JL-3.5 diagnostic catheters. Angiography was performed in multiple views. Then an angled pigtail was introduced into the left ventricle. Left ventricular pressures were taken followed by ventriculogram and pullback. The patient had a significant 99% lesion which appeared to be a thrombus in the OM 2 and had 70% lesion in the distal circumflex in a 0, 1, 1 Porter classification configuration, thus we proceeded to intervention. For this, the left main was engaged with an EBU 3.5 guide. IV heparin was given for anticoagulation. The obtuse marginal vessel was wired with a Choice PT which was anchored distally without complications and the left circumflex wire was wired with a run-through wire which was anchored distally. The OM was treated first. It was predilated with 2.5 x 12 balloon followed by insertion and deployment of a 2.5 x 20 and 2.5x 8 JOSEPHINE. Then we inserted and deployed another drug-eluting stent 2.5 x 32mm in the distal circumflex artery followed by kissing balloons on both branches with a 2.5 x 12mm noncompliant balloons inflated simultaneously to high atmospheres. Final angiographic views revealed good stent apposition and expansion with DANELLE III flow and 0 residual stenosis. The patient tolerated the procedure well without complications. The estimated blood loss was less than 50 cc. Total contrast used was 190. The right radial access site was closed with a TR band. The patient was loaded with 600 of Plavix after the procedure. Sedation used was Versed and Fentanyl. RESULTS: The aortic pressure was 144/59 with a mean of 91. The left ventricular pressure was 164/98 with an left ventricular end diastolic pressure of 17. The left ventriculogram revealed mild hypokinesis in the inferior wall; however, the estimated ejection fraction was about 50%. There was no gradient from the left ventricle to the aorta. ANGIOGRAPHIC RESULTS: 1. The right coronary artery is a codominant system and has minimal luminal irregularities throughout. It has a 50% lesion proximally which is eccentric and another 40% distally. 2. The left main is patent and has mild coronary artery disease, DANELLE III flow. 3. The left anterior descending is a transapical vessel and has minimal luminal irregularities and nonobstructive coronary artery disease. The first diagonal is diffusely diseased with DANELLE III flow. 4. The left circumflex is a significant vessel giving also flow to the posterior descending artery and inferior wall and it has mid a 70% lesion eccentric measuring about 30 mm. There is DANELEL III flow. It has a high OM1 which is small and is diffusely disease with a 80% proximally. OM 2 has a 99% occlusion which appears to be thrombus and has DANELLE I flow. CONCLUSIONS: 1. Severe two-vessel coronary artery disease status post successful percutaneous coronary intervention/JOSEPHINE to the OM2 and distal circumflex artery. 2. Elevated left ventricular end diastolic pressure. RECOMMENDATIONS: 1. Continue dual antiplatelet agents with aspirin and Plavix as well as aggressive medical management for coronary artery disease, which should include beta blockers, ARTURO inhibitors, aspirin, Plavix, statins, long acting nitrates, smoking cessation, and therapeutic lifestyle changes. The patient should be followed up by me a an outpatient. MD WESTON Healy/HIRAM /3:03 PM /3:24 PM STEV[facility]
--- NOTE | 2016-11-24 17:02 | EC ---
Study Study Date:11/24/2016 STUDY CONCLUSIONS SUMMARY LEFT VENTRICLE: The cavity size was mildly dilated. Wall thickness was normal. Systolic function was probably normal. In limited views of the LV, the estimated ejection fraction was in the range of 55% to 60%. If LV function is below 40, please consider prescribing an ACEI or ARB or document rationale for non-use. PROCEDURE DATA STUDY STATUS: Elective. Procedure: Transthoracic echocardiography. Image quality was good. Scanning was performed from the parasternal, apical, and subcostal acoustic windows. Study completion: The patient tolerated the procedure well. Transthoracic echocardiography. M-mode, complete 2D, complete spectral Doppler, and color Doppler. Patient status: Inpatient. CARDIAC ANATOMY LEFT VENTRICLE: The cavity size was mildly dilated. Wall thickness was normal. Systolic function was probably normal. In limited views of the LV, the estimated ejection fraction was in the range of 55% to 60%. Images were inadequate for LV wall motion assessment. AORTIC VALVE: Trileaflet; mildly thickened leaflets. Doppler: There was no stenosis. No significant regurgitation. Valve area: 2.8cm^2 (Vmax). MITRAL VALVE: The valve appears to be grossly normal. Doppler: There was no evidence for stenosis. No significant regurgitation. Peak gradient: 5mm Hg (D). LEFT ATRIUM: The atrium was at the upper limits of normal in size. ATRIAL SEPTUM: There was increased thickness of the septum, consistent with lipomatous hypertrophy. PULMONIC VALVE: Not well visualized. Doppler: There was no evidence for stenosis. No significant regurgitation. TRICUSPID VALVE: The valve appears to be grossly normal. Doppler: There was no evidence for stenosis. Trace regurgitation. BASIC MEASUREMENTS ADULT NORMAL Left ventricle LV internal dimension, ED, chordal level, *54.7 mm 43-52 PLAX LV internal dimension, ES, chordal level, *45.5 mm 23-38 PLAX Fractional shortening, chordal level, PLAX *17 % >29 LV posterior wall thickness, ED 9.8 mm IVS/LVPW ratio, ED 0.69 <1.3 Ventricular septum Septal thickness, ED 6.76 mm Aortic valve Leaflet separation 16 mm 15-26 BASIC MEASUREMENTS ADULT NORMAL Aortic valve Leaflet separation 16 mm 15-26 Aorta Root diameter, ED 35 mm 20-37 Left atrium Anterior-posterior dimension, ES 39 mm 19-40 LA/aortic root ratio 1.11 DOPPLER MEASUREMENTS ADULT NORMAL Main pulmonary artery Pressure, S 22 mm Hg =30 Aortic valve Peak velocity, S 130 cm/s Valve area, Vmax 2.8 cm^2 Mitral valve Peak E-wave velocity 117 cm/s Peak A-wave velocity 66.1 cm/s Deceleration time *232 ms 150-230 Peak gradient, D 5 mm Hg Peak E/A ratio 1.8 Tricuspid valve Regurgitant peak velocity 187 cm/s Peak RV-RA gradient, S 14 mm Hg Maximal regurgitant velocity 187 cm/s Systemic veins Estimated CVP 10 mm Hg Right ventricle RV pressure, S 27 mm Hg <30 Pulmonic valve Peak velocity, S 110 cm/s LEGEND: Mean values are shown as u=mean value. Asterisk (*) tom values outside specified normal range. Prepared and signed by Leodan Grimm [id number]
[2016-11-24 17:03] LABS: BICARBONATE 30.4 MEQ/L (21.0-32.0); POTASSIUM 3.6 MEQ/L (3.5-5.1)
[2016-11-24] MEDS ORDERED: BACITRACIN OINT 0.9 GM PKT ONE (19:39)
[2016-11-24] MEDS: PRAVASTATIN SOD 80 MG TAB PO SCH (21:44)
[2016-11-24] MEDS: MONTELUKAST SODIUM 10 MG TAB PO SCH (21:44)
[2016-11-24] MEDS: SODIUM CHLORIDE 0.9% FLUSH 5 ML FLUSH IVF SCH (21:45)
[2016-11-24] MEDS: cloNIDine HCL 0.1 MG TAB PO PRN (23:52)
[2016-11-25] VITALS (27 sets, daily range): BP systolic 131–195; BP diastolic 62–91; PULSE 53–68; RESP 16–20; TEMP 97.3–98; O2SAT 92–98
[2016-11-25] MEDS: methylPREDNISolone SOD SUCC 40 MG/1 ML VIAL IVP SCH ×2 (00:05→12:01)
[2016-11-25] MEDS: RESP: ALBUTEROL 2.5 MG/IPRATROPIUM 0.5 MG NEB (SCH) INH ×4 (03:53→19:42)
[2016-11-25] MEDS: MORPHINE SULFATE 4 MG/ML INJ IV PUSH PRN (05:02)
[2016-11-25 06:50] LABS: BICARBONATE 30.7 MEQ/L (21.0-32.0); POTASSIUM 3.6 MEQ/L (3.5-5.1)
[2016-11-25] MEDS: INSULIN ASPART SUPPLEMENTAL SCALE SQ SCH ×4 (07:00→20:32)
[2016-11-25 07:19] LABS: APTT (PATIENT) 29.2 SEC (24.3-30.1)
[2016-11-25] MEDS: LOSARTAN 50 MG TAB PO SCH (08:46)
[2016-11-25] MEDS: CARVEDILOL 6.25 MG TAB PO SCH ×2 (08:46→20:01)
[2016-11-25] MEDS: NICOTINE 21 MG/24 HR PATCH TD SCH (08:46)
[2016-11-25] MEDS: DOCUSATE SODIUM 100 MG CAP PO SCH ×2 (08:47→20:01)
[2016-11-25] MEDS: OXYBUTYNIN CHLORIDE 5 MG TAB PO SCH ×2 (08:47→20:00)
[2016-11-25] MEDS: FAMOTIDINE 20 MG TAB PO SCH (08:48)
[2016-11-25] MEDS: ASPIRIN EC 81 MG TABEC PO SCH (08:48)
[2016-11-25] MEDS: GABAPENTIN 100 MG CAP PO SCH ×2 (08:48→20:00)
[2016-11-25] MEDS: CITALOPRAM HYDROBROMIDE 20 MG TAB PO SCH (08:48)
[2016-11-25] MEDS: SODIUM CHLORIDE 0.9% FLUSH 5 ML FLUSH IVF SCH ×2 (08:48→20:02)
[2016-11-25] MEDS: CLOPIDOGREL 75 MG TAB PO SCH (08:48)
[2016-11-25] MEDS: REMOVE OLD NICODERM (NICOTINE) PATCH TD SCH (08:49)
[2016-11-25] MEDS: BUDESONIDE-FORMOTEROL 160/4.5 MCG INHALER INH SCH ×2 (08:49→21:00)
--- NOTE | 2016-11-25 09:11 | PD.CARD.PN ---
Subjective Subjective Remarks The patient denies chest pain, shortness of breath, palpitations, GI symptoms or bleeding. Chart was reviewed. Telemetry reveals sinus rhythm. Objective Medications Reviewed Vital Signs / I&O Vital Signs Date Time Temp Pulse Resp B/P Pulse Ox O2 Delivery O2 Flow Rate FiO2 11/25/16 08:14 95 21 11/25/16 06:00 60 11/25/16 05:00 58 11/25/16 04:00 56 11/25/16 03:00 60 11/25/16 03:00 97.6 57 20 131/62 96 11/25/16 02:00 59 11/25/16 01:00 60 11/25/16 00:00 58 11/24/16 23:00 61 11/24/16 23:00 97.6 60 22 143/75 96 11/24/16 22:00 61 11/24/16 21:00 60 11/24/16 20:09 98 Nasal Cannula 2.00 11/24/16 20:00 62 11/24/16 19:00 60 11/24/16 19:00 97.8 65 22 153/74 96 11/24/16 16:00 62 11/24/16 15:35 98 Nasal Cannula 2.00 11/24/16 15:30 97.6 62 18 165/76 98 11/24/16 15:00 65 11/24/16 12:00 65 11/24/16 12:00 97.8 67 18 138/66 96 11/24/16 11:00 69 11/24/16 10:00 64 I/O 11/24/16 11/24/16 11/24/16 11/25/16 11/25/16 11/25/16 07:00 15:00 23:00 07:00 15:00 23:00 Intake Total 1161 ml 980 ml 756 ml Output Total 500 ml 1450 ml 1900 ml Balance 661 ml -470 ml -1144 ml Intake Oral 720 ml 480 ml 480 ml IV Total 441 ml 500 ml 276 ml Output Urine Total 500 ml 1450 ml 1900 ml # Voids 5 Physical Exam GENERAL: Well-nourished, well-developed patient in no apparent distress. SKIN: Warm and dry. NECK: JVD normal - less than or equal to 5 cm H20. CARDIOVASCULAR: Regular rate and rhythm without murmurs, gallops, or rubs. RESPIRATORY: Normal breath sounds - equal bilaterally. No accessory muscle use. No wheezes, rales or rubs. PERIPHERY: No cyanosis, or edema. Right radial pulse 2+. Laboratory Laboratory Tests Test 11/24/16 11/25/16 16:24 05:41 Sodium Level 139 MEQ/L 141 MEQ/L Potassium Level 3.6 MEQ/L 3.6 MEQ/L Chloride Level 103 MEQ/L 105 MEQ/L Carbon Dioxide Level 30.4 MEQ/L 30.7 MEQ/L Anion Gap 6 MEQ/L 5 MEQ/L Blood Urea Nitrogen 23 MG/DL 25 MG/DL Creatinine 1.34 MG/DL 1.47 MG/DL Estimat Glomerular Filtration 39 ML/MIN 35 ML/MIN Rate Random Glucose 96 MG/DL 113 MG/DL Calcium Level 8.5 MG/DL 8.4 MG/DL Activated Partial 29.2 SEC Thromboplast Time Imaging Last 48 hours Impressions Chest X-Ray 11/24/16 0600 Signed Impressions: Service Date/Time: Thursday, November 24, 2016 04:31 - CONCLUSION: Improved aeration of the lower lungs with some residual non-consolidative infiltrates or atelectasis. Tylor Yang MD Chest X-Ray 11/23/16 1050 Signed Impressions: Service Date/Time: November 11:12 - CONCLUSION: Interstitial and alveolar infiltrates greater in the right lower lobe. Nicholas Jones MD Assessment and Plan Assessment and Plan Problems: Non-ST elevation CA with 2 drug-eluting stents. Hypertension Diabetes Hyperlipidemia Peripheral vascular disease Tobacco abuse Acute on chronic kidney disease Recommendations: Continue present medical regimen. The patient understands she cannot stop her aspirin or clopidogrel because of risk of stent thrombosis or heart attack. Tobacco abstinence Low-cholesterol/salt/diabetic diet Up in roomno heavy exertion at present. Her renal function is slightly worse. I would recommend following this and making sure it is stable. If she is stable she can be discharged tomorrow. CBC is pending. We will sign off but be available if needed. She is to call Dr. Trivedi for 2 to three-week post hospital visit. Hamlet Shaw MD Nov 25, 2016 09:11
[2016-11-25] MEDS ORDERED: LEVOFLOXACIN 750 MG TAB PO SCH (11:00)
--- NOTE | 2016-11-25 11:02 | HHI.PR ---
Subjective Remarks patient is coughing with productive sputum denies cp/sob denies fevers/chills had episode of low o2 sat down to 92% Creatinine trending up Objective Vitals Vital Signs Date Time Temp Pulse Resp B/P Pulse Ox O2 Delivery O2 Flow Rate FiO2 11/25/16 08:30 60 11/25/16 08:30 98.0 68 16 148/81 92 11/25/16 08:14 95 21 11/25/16 06:00 60 11/25/16 05:00 58 11/25/16 04:00 56 11/25/16 03:00 60 11/25/16 03:00 97.6 57 20 131/62 96 11/25/16 02:00 59 11/25/16 01:00 60 11/25/16 00:00 58 11/24/16 23:00 61 11/24/16 23:00 97.6 60 22 143/75 96 11/24/16 22:00 61 11/24/16 21:00 60 11/24/16 20:09 98 Nasal Cannula 2.00 11/24/16 20:00 62 11/24/16 19:00 60 11/24/16 19:00 97.8 65 22 153/74 96 11/24/16 16:00 62 11/24/16 15:35 98 Nasal Cannula 2.00 11/24/16 15:30 97.6 62 18 165/76 98 11/24/16 15:00 65 11/24/16 12:00 65 11/24/16 12:00 97.8 67 18 138/66 96 I/O 11/24/16 11/24/16 11/24/16 11/25/16 11/25/16 11/25/16 07:00 15:00 23:00 07:00 15:00 23:00 Intake Total 1161 ml 980 ml 756 ml Output Total 500 ml 1450 ml 1900 ml Balance 661 ml -470 ml -1144 ml Intake Oral 720 ml 480 ml 480 ml IV Total 441 ml 500 ml 276 ml Output Urine Total 500 ml 1450 ml 1900 ml # Voids 5 Result Diagram: 11/23/16 1305 11/25/16 0541 Imaging Last Impressions Chest X-Ray 11/24/16 0600 Signed Impressions: Service Date/Time: Thursday, November 24, 2016 04:31 - CONCLUSION: Improved aeration of the lower lungs with some residual non-consolidative infiltrates or atelectasis. Tylor Yang MD Objective Remarks GENERAL: nad, sitting, coughing SKIN: Warm and dry. HEAD: Atraumatic. Normocephalic. EYES: Pupils equal and round. No scleral icterus. No injection or drainage. ENT: No nasal bleeding or discharge. Mucous membranes pink and moist. NECK: Trachea midline. No JVD. CARDIOVASCULAR: Regular rate and rhythm. RESPIRATORY: No accessory muscle use. Clear to auscultation. Breath sounds equal bilaterally. GASTROINTESTINAL: Abdomen soft, non-tender, nondistended. Hepatic and splenic margins not palpable. MUSCULOSKELETAL: Extremities without clubbing, cyanosis, or edema. No obvious deformities. NEUROLOGICAL: Awake and alert. No obvious cranial nerve deficits. Motor grossly within normal limits. Five out of 5 muscle strength in the arms and legs. Normal speech. PSYCHIATRIC: Appropriate mood and affect; insight and judgment normal. Procedures sp Cardiac Catheterization on 11/24/16 with 2 drug-eluting stents placed. Medications and IVs Current Medications Medications (Trade) Dose Ordered Sig/Latasha Route Start Time Stop Time Status Last Admin (Nitroglycerin-Dextrose Inj) 250 ml @ 0 mls/hr TITRATE IV 11/23/16 11:45 11/24/16 22:20 (Symbicort 160-4.5 Inh) 2 puff Q12HR INH 11/23/16 21:00 11/25/16 08:49 (Habitrol 21 Mg Patch.24 Hr) 1 patch DAILY TD 11/23/16 12:30 11/25/16 08:46 (Zofran Inj) 4 mg Q6H PRN IVP 11/23/16 12:30 (Colace) 100 mg Q12HR PO 11/23/16 21:00 11/25/16 08:47 (Milk Of Magnesia Liq) 30 ml Q12H PRN PO 11/23/16 12:30 (Narcan Inj) 0.4 mg UNSCH PRN IV 11/23/16 12:30 (Xanax) 0.25 mg BID PRN PO 11/23/16 12:45 11/24/16 01:34 (Coreg) 6.25 mg BID PO 11/23/16 21:00 11/25/16 08:46 (CeleXA) 20 mg DAILY PO 11/24/16 09:00 11/25/16 08:48 (Neurontin) 100 mg BID PO 11/23/16 21:00 11/25/16 08:48 (Cozaar) 100 mg DAILY PO 11/24/16 09:00 11/25/16 08:46 (Singulair) 10 mg HS PO 11/23/16 21:00 11/24/16 21:44 (Ditropan) 5 mg Q12HR PO 11/23/16 21:00 11/25/16 08:47 (Pepcid) 20 mg DAILY PO 11/24/16 09:00 11/25/16 08:48 (Pravachol) 80 mg HS PO 11/23/16 21:00 11/24/16 21:44 (D50w (Vial) Inj) 25 ml UNSCH PRN IV PUSH 11/23/16 12:45 (Glucagon Inj) 1 mg UNSCH PRN OTHER 11/23/16 12:45 Miscellaneous Information 1 DAILY TD 11/24/16 09:00 11/25/16 08:49 (Catapres) 0.1 mg Q6H PRN PO 11/23/16 16:30 11/24/16 23:52 (Morphine Inj) 2 mg Q3H PRN IV PUSH 11/23/16 17:00 11/25/16 05:02 (SoluMEDROL INJ) 40 mg Q12H IVP 11/24/16 01:00 11/25/16 00:05 (Plavix) 75 mg DAILY PO 11/25/16 09:00 11/25/16 08:48 (NS Flush) 2 ml UNSCH PRN IVF 11/24/16 15:00 (NS Flush) 2 ml BID IVF 11/24/16 21:00 11/25/16 08:48 (Ecotrin Ec) 162 mg DAILY PO 11/26/16 09:00 Urinary Catheter: No Vascular Central Line Catheter: No A/P Problem List: (1) Dyspnea ICD Code: R06.00 Status: Resolved Plan: Dyspnea resolved likely due to CHF exacerbation and pneumonia with COPD exacerbation as well. Initial chest x-ray showed some interstitial and alveolar infiltrates. Repeat chest x-ray which was personally reviewed by me showed improvement of infiltrates which was not constituting. Patient has been treated with Lasix. Echocardiogram was done and showed a systolic function which was normal with an EF in the range of 55-60% but the cavity size was mildly dilated. BNP on presentation was 875. (2) Acute on chronic diastolic (congestive) heart failure ICD Code: I50.33 Status: Resolved Plan: As stated above. Now resolved. We'll hold Lasix and give gentle IV fluids in the form of normal saline at 50 minutes an hour given the rising creatinine (3) NSTEMI (non-ST elevated myocardial infarction) ICD Code: I21.4 Status: Acute Plan: Status post cardiac catheterization on 11/24/16 with placement of 2 drug- eluting stents. Continue aspirin and Plavix. Appreciate cardiology recommendations. Low cholesterol diet, continue statin, beta sam, ARTURO inhibitor. The patient will follow-up as an outpatient in [address] Trivedi. (4) COPD exacerbation ICD Code: J44.1 Status: Acute Plan: Patient on IV Solu-Medrol, I will add oral Levaquin. Tapered the dose of Solu-Medrol to once a day. I will consult pulmonary. Continue with inhaled steroids. I will also add inhaled ipratropium and avoid healed albuterol. (5) SHAISTA (acute kidney injury) ICD Code: N17.9 Status: Acute Plan: This is probably acute kidney injury on chronic kidney disease stage III. The patient thinks that she might have had said that she had some kidney failure in the past. Unfortunately we do not have any previous medical records to which we can compare the creatinine. Creatinine slightly worst up to 1.4 from 1.3. I will hold diuretics and start the patient on gentle IV fluids and continue to monitor BUN/creatinine, strict I's and O's, avoid nephrotoxins. (6) Smoking addiction ICD Code: F17.200 Status: Acute Plan: Continue nicotine patch, the patient has been counseled on smoking cessation. Assessment and Plan GI prophylaxis: KAYLIE. DVT prophylaxis: SCDs, no chemical prophylaxis since patient is on aspirin and Plavix. Discharge Planning Possible discharge tomorrow pending pulmonary consultation and improvement of creatinine. Problem Qualifiers (1) Dyspnea: Qualified Code: R06.00 - Dyspnea, unspecified type Angel Casey MD Nov 25, 2016 11:02
[2016-11-25 11:48] LABS: HEMATOCRIT 28.4 % (35.0-46.0); MEAN CELL VOLUME 92.6 FL (80.0-100.0); MEAN CORPUSCULAR HEMOGLOBIN 31.1 PG (27.0-34.0); MEAN CORPUSCULAR HGB CONC 33.6 % (32.0-36.0); PLATELET COUNT 245 TH/MM3 (150-450); RED BLOOD COUNT 3.07 MIL/MM3 (4.00-5.30); RED CELL DISTRIBUTION WIDTH 14.3 % (11.6-17.2); REVIEW FLAG FINAL; WHITE BLOOD COUNT 7.1 TH/MM3 (4.0-11.0)
[2016-11-25] MEDS ORDERED: SODIUM CHLOR 0.9% 1000 ML INJ 1,000 ML IV SCH (12:00)
[2016-11-25] MEDS: LEVOFLOXACIN 750 MG TAB PO SCH (12:05)
[2016-11-25 14:56] LABS: BLOOD GAS BASE EXCESS 2.5 mmol/L (-2-2); BLOOD GAS CARBOXYHEMOGLOBIN 1.6 % (0-4); BLOOD GAS HCO3 27 mmol/L (22-26); BLOOD GAS METHEMOGLOBIN 1.2 % (0-2); BLOOD GAS O2 HGB SATURATION 91 % (90-100); BLOOD GAS OXYGEN CONTENT 13.6 Vol % (12.0-20.0); BLOOD GAS PCO2 45 mmHg (38-42); BLOOD GAS PO2 70 mmHg (61-120); BLOOD GAS TOTAL HGB 10.7 G/DL (12.0-16.0); CRITICAL VALUE NO; DRAW SITE LT RADIAL; FIO2 21 %; NUMBER OF ARTERIAL PUNCTURES 1; OXYGEN DEVICE ROOM AIR; STAT NO; TEMP CORR TO 98.6
[2016-11-25] MEDS: cloNIDine HCL 0.1 MG TAB PO PRN (17:22)
--- NOTE | 2016-11-25 18:50 | MB ---
cc: Melida LAU M.D. DATE OF CONSULTATION 11/25/16 HISTORY Ms. Bender is a 71-year-old white female, smoked up to the time of admission, has smoked all of her adult life about a pack per day. She moved here from [place] in February at which time she presented with a stroke. She had recovered from that, was getting along reasonably well, but unfortunately continued to smoke and had had some intermittent chest pain over the last few weeks but did not think much of it. She then became short of breath so she presented to the emergency room. Initial chest x-ray revealed what was thought to be either basilar pneumonia or CHF, but her BNP was elevated at 875. Troponin was also mildly elevated so she was catheterized and cardiology had to place two stents. She was felt to have a non-ST segment TN with underlying coronary artery disease and now is feeling much better. She really does not know what the severity of her pulmonary disease is, but she has been told she had COPD as long as 10 years ago. She was not oxygen-dependent and at home she was on Montelukast She did have a nebulizer at home which she used several times a day. She had a followup chest x-ray which was much improved probably resolving pulmonary edema. White blood cell count has been normal throughout this admission and she has had no specific cultures. PAST MEDICAL HISTORY 1. She is diabetic. 2. She had the stroke mentioned above, 3. Hypertension, 4. Hyperlipidemia. PAST SURGICAL HISTORY No major surgical interventions. ALLERGIES PENICILLIN TRAMADOL - Severe nausea and vomiting. She had listed prednisone and shortness of breath as reaction but after reviewing this, it is apparent she is not allergic to steroids. In fact, she has been getting them intravenously here so we have asked that that be removed from her allergy list. FAMILY HISTORY She lives here locally with her daughter. She has another daughter who lives nearby. They are in good health. She is . She came down here from [place] earlier this year. No alcohol use and no animals in the home. REVIEW OF SYSTEMS There has been no syncope. No hemoptysis or purulent sputum. She denies chronic wheezing. She had been getting more short of breath. She has some edema in her feet. No orthopnea, no PND. PHYSICAL EXAMINATION GENERAL: Obese, older white female no distress at rest VITAL SIGNS: Afebrile, 97 degrees, pulse is 60, respirations are 22 and blood pressure is 140/75. She is on 2 liters at 96-98%. An earlier saturation on room air above 90. HEENT: Sclerae anicteric. Pharynx is clear. NECK: Neck veins are not distended. CHEST: Diminished but quite clear. No basilar rales. No wheezes or congestion. CARDIOVASCULAR: Regular rhythm. Soft systolic murmur. No audible S3. ABDOMEN: Obese but soft. EXTREMITIES: Minimal ankle edema. No cyanosis or clubbing. LABORATORY DATA White count is normal. Hemoglobin is 9.6-12. Her INR is normal BUN is 16, creatinine 1.2. DISCUSSION Ms. Bender presents with a new onset of coronary disease with heart failure. She has had two stents placed. She probably does have underlying chronic obstructive pulmonary disease, but it does not sound like that has been thoroughly evaluated. Given her body habitus, she may also have a sleep apnea problem that could be evaluated as an outpatient. I would suggest room air blood gases to be sure she is not a CO2 retainer, also a bedside spirometry to get some assessment of the degree of airway obstruction. I have made some adjustment in her steroid dose and aerosol doses, which I think we can begin to back off on. Further diagnostic and/or therapeutic intervention will depend on her ongoing clinical course and response to therapy. R. MD DOUGLAS Rasmussen/ /1:23 PM /6:35 PM
[2016-11-25] MEDS ORDERED: amLODIPine BESYLATE 5 MG TAB PO ONE (19:30)
[2016-11-25] MEDS: MONTELUKAST SODIUM 10 MG TAB PO SCH (20:00)
[2016-11-25] MEDS: PRAVASTATIN SOD 80 MG TAB PO SCH (20:00)
[2016-11-26] VITALS (30 sets, daily range): BP systolic 144–187; BP diastolic 75–88; PULSE 58–72; RESP 16–20; TEMP 97.3–98.5; O2SAT 90–98
[2016-11-26] MEDS: cloNIDine HCL 0.1 MG TAB PO PRN ×3 (00:13→23:53)
[2016-11-26] MEDS: ALPRAZolam 0.25 MG TAB PO PRN ×3 (00:13→23:55)
[2016-11-26] MEDS ORDERED: hydrALAZINE HCL 20 MG/ML VIAL ONE ×2 (01:13→03:00)
[2016-11-26] MEDS ORDERED: hydrALAZINE HCL 20 MG/ML VIAL IV ONE (02:45)
[2016-11-26] MEDS ORDERED: hydrALAZINE HCL 20 MG/ML VIAL IVP ONE (03:15)
[2016-11-26 05:27] LABS: HEMATOCRIT 31.2 % (35.0-46.0); MEAN CELL VOLUME 91.1 FL (80.0-100.0); MEAN CORPUSCULAR HEMOGLOBIN 31.2 PG (27.0-34.0); MEAN CORPUSCULAR HGB CONC 34.2 % (32.0-36.0); PLATELET COUNT 249 TH/MM3 (150-450); RED BLOOD COUNT 3.43 MIL/MM3 (4.00-5.30); RED CELL DISTRIBUTION WIDTH 13.7 % (11.6-17.2); REVIEW FLAG FINAL; WHITE BLOOD COUNT 6.2 TH/MM3 (4.0-11.0)
[2016-11-26 05:44] LABS: APTT (PATIENT) 28.3 SEC (24.3-30.1)
[2016-11-26 05:51] LABS: BICARBONATE 27.6 MEQ/L (21.0-32.0); POTASSIUM 3.2 MEQ/L (3.5-5.1)
[2016-11-26] MEDS: INSULIN ASPART SUPPLEMENTAL SCALE SQ SCH ×4 (06:20→20:58)
[2016-11-26] MEDS: RESP: ALBUTEROL 2.5 MG/IPRATROPIUM 0.5 MG NEB (SCH) INH ×3 (07:30→19:08)
[2016-11-26] MEDS: LOSARTAN 50 MG TAB PO SCH (08:12)
[2016-11-26] MEDS: BUDESONIDE-FORMOTEROL 160/4.5 MCG INHALER INH SCH ×2 (08:12→21:12)
[2016-11-26] MEDS: CITALOPRAM HYDROBROMIDE 20 MG TAB PO SCH (08:13)
[2016-11-26] MEDS: FAMOTIDINE 20 MG TAB PO SCH (08:13)
[2016-11-26] MEDS: DOCUSATE SODIUM 100 MG CAP PO SCH ×2 (08:13→21:13)
[2016-11-26] MEDS: CARVEDILOL 6.25 MG TAB PO SCH ×2 (08:13→21:13)
[2016-11-26] MEDS: ASPIRIN EC 81 MG TABEC PO SCH (08:13)
[2016-11-26] MEDS: GABAPENTIN 100 MG CAP PO SCH ×2 (08:13→21:13)
[2016-11-26] MEDS: OXYBUTYNIN CHLORIDE 5 MG TAB PO SCH ×2 (08:14→21:13)
[2016-11-26] MEDS: SODIUM CHLORIDE 0.9% FLUSH 5 ML FLUSH IVF SCH ×2 (08:14→21:13)
[2016-11-26] MEDS: CLOPIDOGREL 75 MG TAB PO SCH (08:14)
[2016-11-26] MEDS: NICOTINE 21 MG/24 HR PATCH TD SCH (08:15)
[2016-11-26] MEDS: REMOVE OLD NICODERM (NICOTINE) PATCH TD SCH (08:15)
[2016-11-26] MEDS ORDERED: POTASSIUM CHLORIDE 10 MEQ CONTROLLED RELEASE TAB PO ONE (08:30)
[2016-11-26] MEDS ORDERED: methylPREDNISolone SOD SUCC 40 MG/1 ML VIAL IVP SCH (09:00)
[2016-11-26] MEDS ORDERED: amLODIPine BESYLATE 5 MG TAB PO SCH (09:00)
--- NOTE | 2016-11-26 09:46 | HHI.PR ---
Subjective Remarks Bp very elevated and uncontrolled overnight - required multiple hydralazine doses patient denies cp/sob denies fevers/chills (+) cough low potassium noted creatinine trending down Objective Vitals Vital Signs Date Time Temp Pulse Resp B/P Pulse Ox O2 Delivery O2 Flow Rate FiO2 11/26/16 08:04 97 11/26/16 05:00 187/88 11/26/16 03:00 67 20 182/75 93 11/25/16 23:00 97.3 58 18 186/89 95 11/25/16 19:43 98 21 11/25/16 19:00 97.4 64 18 186/91 93 11/25/16 18:01 64 11/25/16 17:00 68 11/25/16 16:01 66 11/25/16 15:30 97.5 67 18 195/90 94 11/25/16 15:00 65 11/25/16 14:00 59 11/25/16 13:00 53 11/25/16 12:01 58 11/25/16 12:01 97.7 60 18 147/72 92 11/25/16 11:00 56 11/25/16 10:00 56 I/O 11/25/16 11/25/16 11/25/16 11/26/16 11/26/16 11/26/16 07:00 15:00 23:00 07:00 15:00 23:00 Intake Total 756 ml 1249 ml 1440 ml Output Total 1900 ml 1500 ml 1200 ml Balance -1144 ml -251 ml 240 ml Intake Oral 480 ml 960 ml 1440 ml IV Total 276 ml 289 ml 0 ml Output Urine Total 1900 ml 1500 ml 1200 ml # Voids 5 5 # Bowel Movements 0 Result Diagram: 11/26/16 0456 11/26/16 0456 Imaging Last Impressions Chest X-Ray 11/24/16 0600 Signed Impressions: Service Date/Time: Thursday, November 24, 2016 04:31 - CONCLUSION: Improved aeration of the lower lungs with some residual non-consolidative infiltrates or atelectasis. Tylor Yang MD Objective Remarks GENERAL: nad, sitting, coughing SKIN: Warm and dry. HEAD: Atraumatic. Normocephalic. EYES: Pupils equal and round. No scleral icterus. No injection or drainage. ENT: No nasal bleeding or discharge. Mucous membranes pink and moist. NECK: Trachea midline. No JVD. CARDIOVASCULAR: Regular rate and rhythm. RESPIRATORY: No accessory muscle use. Clear to auscultation. Breath sounds equal bilaterally. GASTROINTESTINAL: Abdomen soft, non-tender, nondistended. Hepatic and splenic margins not palpable. MUSCULOSKELETAL: Extremities without clubbing, cyanosis, or edema. No obvious deformities. NEUROLOGICAL: Awake and alert. No obvious cranial nerve deficits. Motor grossly within normal limits. Five out of 5 muscle strength in the arms and legs. Normal speech. PSYCHIATRIC: Appropriate mood and affect; insight and judgment normal. Procedures sp Cardiac Catheterization on 11/24/16 with 2 drug-eluting stents placed. Medications and IVs Current Medications Medications (Trade) Dose Ordered Sig/Latasha Route Start Time Stop Time Status Last Admin (Habitrol 21 Mg Patch.24 Hr) 1 patch DAILY TD 11/23/16 12:30 11/26/16 08:15 (Zofran Inj) 4 mg Q6H PRN IVP 11/23/16 12:30 (Colace) 100 mg Q12HR PO 11/23/16 21:00 11/26/16 08:13 (Milk Of Magnesia Liq) 30 ml Q12H PRN PO 11/23/16 12:30 (Narcan Inj) 0.4 mg UNSCH PRN IV 11/23/16 12:30 (Xanax) 0.25 mg BID PRN PO 11/23/16 12:45 11/26/16 08:13 (Coreg) 6.25 mg BID PO 11/23/16 21:00 11/26/16 08:13 (CeleXA) 20 mg DAILY PO 11/24/16 09:00 11/26/16 08:13 (Neurontin) 100 mg BID PO 11/23/16 21:00 11/26/16 08:13 (Cozaar) 100 mg DAILY PO 11/24/16 09:00 11/26/16 08:12 (Singulair) 10 mg HS PO 11/23/16 21:00 11/25/16 20:00 (Ditropan) 5 mg Q12HR PO 11/23/16 21:00 11/26/16 08:14 (Pepcid) 20 mg DAILY PO 11/24/16 09:00 11/26/16 08:13 (Pravachol) 80 mg HS PO 11/23/16 21:00 11/25/16 20:00 (D50w (Vial) Inj) 25 ml UNSCH PRN IV PUSH 11/23/16 12:45 (Glucagon Inj) 1 mg UNSCH PRN OTHER 11/23/16 12:45 Miscellaneous Information 1 DAILY TD 11/24/16 09:00 11/26/16 08:15 (Catapres) 0.1 mg Q6H PRN PO 11/23/16 16:30 11/26/16 05:42 (Morphine Inj) 2 mg Q3H PRN IV PUSH 11/23/16 17:00 11/25/16 05:02 (Plavix) 75 mg DAILY PO 11/25/16 09:00 11/26/16 08:14 (NS Flush) 2 ml UNSCH PRN IVF 11/24/16 15:00 (NS Flush) 2 ml BID IVF 11/24/16 21:00 11/26/16 08:14 (Ecotrin Ec) 162 mg DAILY PO 11/26/16 09:00 11/26/16 08:13 (Levaquin) 750 mg Q48H PO 11/25/16 12:00 11/25/16 12:05 (Symbicort 160-4.5 Inh) 1 puff Q12HR INH 11/25/16 21:00 11/26/16 08:12 (SoluMEDROL INJ) 40 mg DAILY IVP 11/26/16 09:00 11/26/16 08:14 (Cardura) 2 mg DAILY PO 11/26/16 09:00 11/26/16 10:42 (Norvasc) 10 mg DAILY PO 11/26/16 09:00 11/26/16 10:42 Urinary Catheter: No Vascular Central Line Catheter: No A/P Problem List: (1) Dyspnea ICD Code: R06.00 Status: Resolved Plan: Dyspnea resolved likely due to CHF exacerbation and pneumonia with COPD exacerbation as well. Initial chest x-ray showed some interstitial and alveolar infiltrates. Repeat chest x-ray which was personally reviewed by me showed improvement of infiltrates which was not constituting. Patient has been treated with Lasix. Echocardiogram was done and showed a systolic function which was normal with an EF in the range of 55-60% but the cavity size was mildly dilated. BNP on presentation was 875. (2) Acute on chronic diastolic (congestive) heart failure ICD Code: I50.33 Status: Resolved Plan: As stated above. Now resolved. Lasix held, patient started on gentle IV fluids due to rising creatinine. Now resolved and stable. (3) NSTEMI (non-ST elevated myocardial infarction) ICD Code: I21.4 Status: Acute Plan: Status post cardiac catheterization on 11/24/16 with placement of 2 drug- eluting stents. Continue aspirin and Plavix. Appreciate cardiology recommendations. Low cholesterol diet, continue statin, beta sam, ARTURO inhibitor. The patient will follow-up as an outpatient in [address] Trivedi. (4) COPD exacerbation ICD Code: J44.1 Status: Acute Plan: Patient on IV Solu-Medrol, I will add oral Levaquin. Tapered the dose of Solu-Medrol to once a day. Continue with inhaled steroids. Continue inhaled steroids. Appreciate pulmonary recommendations. Management as per pulmonary. (5) SHAISTA (acute kidney injury) ICD Code: N17.9 Status: Acute Plan: This is probably acute kidney injury on chronic kidney disease stage III. The patient thinks that she might have had said that she had some kidney failure in the past. Unfortunately we do not have any previous medical records to which we can compare the creatinine. Creatinine slightly worst up to 1.4 from 1.3. I will hold diuretics and start the patient on gentle IV fluids and continue to monitor BUN/creatinine, strict I's and O's, avoid nephrotoxins. 11/26/16 Creatinine getting better and trending down, now down to 1.38. DC IV fluids. (6) Smoking addiction ICD Code: F17.200 Status: Acute Plan: Continue nicotine patch, the patient has been counseled on smoking cessation. (7) Uncontrolled hypertension ICD Code: I10 Status: Acute Plan: Patient with very elevated blood pressures into the 190s, which has required multiple doses of IV hydralazine and still uncontrolled. I will start the patient on 2 mg of Cardura by mouth daily and increase amlodipine to 5 minutes by mouth daily. Continue the rest of the patient's antihypertensive medications which include losartan and clonidine as needed. Assessment and Plan GI prophylaxis: PPI DVT prophylaxis: SCDs, no chemical prophylaxis since patient is on aspirin and Plavix. Discharge Planning Possible discharge later today or in a.m. pending blood pressure improvement. Problem Qualifiers (1) Dyspnea: Qualified Code: R06.00 - Dyspnea, unspecified type Angel Casey MD Nov 26, 2016 09:46
[2016-11-26] MEDS: DOXAZOSIN MESYLATE 2 MG TAB PO SCH (10:42)
[2016-11-26] MEDS: PRAVASTATIN SOD 80 MG TAB PO SCH (21:13)
[2016-11-26] MEDS: MONTELUKAST SODIUM 10 MG TAB PO SCH (21:13)
[2016-11-27] VITALS (31 sets, daily range): BP systolic 153–191; BP diastolic 66–94; PULSE 46–64; RESP 16–18; TEMP 97.9–98.4; O2SAT 95–98
[2016-11-27] MEDS: cloNIDine HCL 0.1 MG TAB PO PRN ×3 (05:10→22:35)
[2016-11-27] MEDS: INSULIN ASPART SUPPLEMENTAL SCALE SQ SCH ×5 (05:15→22:38)
[2016-11-27 06:30] LABS: APTT (PATIENT) 27.9 SEC (24.3-30.1)
[2016-11-27] MEDS: RESP: ALBUTEROL 2.5 MG/IPRATROPIUM 0.5 MG NEB (SCH) INH ×3 (08:08→20:00)
[2016-11-27] MEDS ORDERED: predniSONE 20 MG TAB PO SCH (09:00)
[2016-11-27] MEDS: REMOVE OLD NICODERM (NICOTINE) PATCH TD SCH (09:00)
[2016-11-27] MEDS: NICOTINE 21 MG/24 HR PATCH TD SCH (09:17)
[2016-11-27] MEDS: LOSARTAN 50 MG TAB PO SCH (09:17)
[2016-11-27] MEDS: OXYBUTYNIN CHLORIDE 5 MG TAB PO SCH ×2 (09:18→22:36)
[2016-11-27] MEDS: ASPIRIN EC 81 MG TABEC PO SCH (09:18)
[2016-11-27] MEDS: FAMOTIDINE 20 MG TAB PO SCH (09:18)
[2016-11-27] MEDS: CARVEDILOL 6.25 MG TAB PO SCH ×2 (09:18→22:36)
[2016-11-27] MEDS: DOCUSATE SODIUM 100 MG CAP PO SCH ×2 (09:18→22:35)
[2016-11-27] MEDS: CITALOPRAM HYDROBROMIDE 20 MG TAB PO SCH (09:18)
[2016-11-27] MEDS: GABAPENTIN 100 MG CAP PO SCH ×2 (09:18→22:37)
[2016-11-27] MEDS: DOXAZOSIN MESYLATE 2 MG TAB PO SCH (09:19)
[2016-11-27] MEDS: SODIUM CHLORIDE 0.9% FLUSH 5 ML FLUSH IVF SCH ×2 (09:19→22:39)
[2016-11-27] MEDS: CLOPIDOGREL 75 MG TAB PO SCH (09:19)
[2016-11-27] MEDS: BUDESONIDE-FORMOTEROL 160/4.5 MCG INHALER INH SCH ×2 (09:19→22:39)
[2016-11-27] MEDS ORDERED: DOXAZOSIN MESYLATE 2 MG TAB PO ONE (09:30)
--- NOTE | 2016-11-27 10:04 | HHI.PR ---
Subjective Remarks Bp still uncontrolled denies cp/sob denies fevers/chills no diarrhea no fever low potassium Objective Vitals Vital Signs Date Time Temp Pulse Resp B/P Pulse Ox O2 Delivery O2 Flow Rate FiO2 11/27/16 09:00 57 11/27/16 08:08 95 21 11/27/16 08:00 56 11/27/16 07:00 60 11/27/16 07:00 97.9 56 16 173/87 97 11/27/16 06:57 162/80 Manual Cuff/Auscultation 11/27/16 06:00 53 11/27/16 05:06 54 18 170/66 98 Automatic Cuff 11/27/16 05:00 55 11/27/16 04:00 58 11/27/16 03:00 58 11/27/16 02:00 58 11/27/16 01:04 61 161/94 11/27/16 01:00 57 11/27/16 00:00 59 11/27/16 00:00 64 18 191/87 95 11/26/16 23:00 61 11/26/16 22:00 60 11/26/16 21:00 58 11/26/16 20:00 58 11/26/16 19:15 98.5 59 18 144/77 94 11/26/16 19:08 98 21 11/26/16 19:00 61 11/26/16 18:01 64 11/26/16 17:01 59 11/26/16 16:00 64 11/26/16 15:01 97.3 63 18 177/84 91 11/26/16 15:00 65 11/26/16 14:00 66 11/26/16 13:01 61 11/26/16 12:01 66 11/26/16 11:50 98.4 63 16 181/82 90 11/26/16 11:00 66 I/O 11/26/16 11/26/16 11/26/16 11/27/16 11/27/16 11/27/16 07:00 15:00 23:00 07:00 15:00 23:00 Intake Total 1440 ml 1200 ml 750 ml Output Total 1200 ml 1600 ml 2200 ml Balance 240 ml -400 ml -1450 ml Intake Oral 1440 ml 1200 ml 750 ml IV Total 0 ml Output Urine Total 1200 ml 1600 ml 2200 ml # Voids 4 # Bowel Movements 0 Result Diagram: 11/26/16 0456 11/26/16 0456 Imaging Last Impressions Chest X-Ray 11/24/16 0600 Signed Impressions: Service Date/Time: Thursday, November 24, 2016 04:31 - CONCLUSION: Improved aeration of the lower lungs with some residual non-consolidative infiltrates or atelectasis. Tylor Yang MD Objective Remarks GENERAL: nad, sitting, nad - no respiratory distress SKIN: Warm and dry. HEAD: Atraumatic. Normocephalic. EYES: Pupils equal and round. No scleral icterus. No injection or drainage. ENT: No nasal bleeding or discharge. Mucous membranes pink and moist. NECK: Trachea midline. No JVD. CARDIOVASCULAR: Regular rate and rhythm. RESPIRATORY: No accessory muscle use. Clear to auscultation. Breath sounds equal bilaterally. GASTROINTESTINAL: Abdomen soft, non-tender, nondistended. Hepatic and splenic margins not palpable. MUSCULOSKELETAL: Extremities without clubbing, cyanosis, or edema. No obvious deformities. NEUROLOGICAL: Awake and alert. No obvious cranial nerve deficits. Motor grossly within normal limits. Five out of 5 muscle strength in the arms and legs. Normal speech. PSYCHIATRIC: Appropriate mood and affect; insight and judgment normal. Procedures sp Cardiac Catheterization on 11/24/16 with 2 drug-eluting stents placed. Medications and IVs Current Medications Medications (Trade) Dose Ordered Sig/Latasha Route Start Time Stop Time Status Last Admin (Habitrol 21 Mg Patch.24 Hr) 1 patch DAILY TD 11/23/16 12:30 11/27/16 09:17 (Zofran Inj) 4 mg Q6H PRN IVP 11/23/16 12:30 (Colace) 100 mg Q12HR PO 11/23/16 21:00 11/27/16 09:18 (Milk Of Magnesia Liq) 30 ml Q12H PRN PO 11/23/16 12:30 (Narcan Inj) 0.4 mg UNSCH PRN IV 11/23/16 12:30 (Xanax) 0.25 mg BID PRN PO 11/23/16 12:45 11/26/16 23:55 (Coreg) 6.25 mg BID PO 11/23/16 21:00 11/27/16 09:18 (CeleXA) 20 mg DAILY PO 11/24/16 09:00 11/27/16 09:18 (Neurontin) 100 mg BID PO 11/23/16 21:00 11/27/16 09:18 (Cozaar) 100 mg DAILY PO 11/24/16 09:00 11/27/16 09:17 (Singulair) 10 mg HS PO 11/23/16 21:00 11/26/16 21:13 (Ditropan) 5 mg Q12HR PO 11/23/16 21:00 11/27/16 09:18 (Pepcid) 20 mg DAILY PO 11/24/16 09:00 11/27/16 09:18 (Pravachol) 80 mg HS PO 11/23/16 21:00 11/26/16 21:13 (D50w (Vial) Inj) 25 ml UNSCH PRN IV PUSH 11/23/16 12:45 (Glucagon Inj) 1 mg UNSCH PRN OTHER 11/23/16 12:45 Miscellaneous Information 1 DAILY TD 11/24/16 09:00 11/27/16 09:00 (Catapres) 0.1 mg Q6H PRN PO 11/23/16 16:30 11/27/16 05:10 (Morphine Inj) 2 mg Q3H PRN IV PUSH 11/23/16 17:00 11/25/16 05:02 (Plavix) 75 mg DAILY PO 11/25/16 09:00 11/27/16 09:19 (NS Flush) 2 ml UNSCH PRN IVF 11/24/16 15:00 (NS Flush) 2 ml BID IVF 11/24/16 21:00 11/27/16 09:19 (Ecotrin Ec) 162 mg DAILY PO 11/26/16 09:00 11/27/16 09:18 (Levaquin) 750 mg Q48H PO 11/25/16 12:00 11/25/16 12:05 (Symbicort 160-4.5 Inh) 1 puff Q12HR INH 11/25/16 21:00 11/27/16 09:19 (Norvasc) 10 mg DAILY PO 11/26/16 09:00 11/27/16 09:18 (Deltasone) 20 mg DAILY PO 11/27/16 09:00 11/27/16 09:19 (Cardura) 4 mg DAILY PO 11/28/16 09:00 Urinary Catheter: No Vascular Central Line Catheter: No A/P Problem List: (1) Dyspnea ICD Code: R06.00 Status: Resolved Plan: Dyspnea resolved likely due to CHF exacerbation and pneumonia with COPD exacerbation as well. Initial chest x-ray showed some interstitial and alveolar infiltrates. Repeat chest x-ray which was personally reviewed by me showed improvement of infiltrates which was not constituting. Patient has been treated with Lasix. Echocardiogram was done and showed a systolic function which was normal with an EF in the range of 55-60% but the cavity size was mildly dilated. BNP on presentation was 875. (2) Acute on chronic diastolic (congestive) heart failure ICD Code: I50.33 Status: Resolved Plan: As stated above. Now resolved. Lasix held, patient started on gentle IV fluids due to rising creatinine. Now resolved and stable. (3) NSTEMI (non-ST elevated myocardial infarction) ICD Code: I21.4 Status: Acute Plan: Status post cardiac catheterization on 11/24/16 with placement of 2 drug- eluting stents. Continue aspirin and Plavix. Appreciate cardiology recommendations. Low cholesterol diet, continue statin, beta sam, ARTURO inhibitor. The patient will follow-up as an outpatient in [address] Trivedi. (4) COPD exacerbation ICD Code: J44.1 Status: Acute Plan: Patient on IV Solu-Medrol, I will add oral Levaquin. Continue with inhaled steroids. Continue inhaled steroids. Appreciate pulmonary recommendations. Management as per pulmonary. IV steroids discontinued - now on prednisone (5) SHAISTA (acute kidney injury) ICD Code: N17.9 Status: Acute Plan: This is probably acute kidney injury on chronic kidney disease stage III. The patient thinks that she might have had said that she had some kidney failure in the past. Unfortunately we do not have any previous medical records to which we can compare the creatinine. Creatinine slightly worst up to 1.4 from 1.3. I will hold diuretics and start the patient on gentle IV fluids and continue to monitor BUN/creatinine, strict I's and O's, avoid nephrotoxins. 11/26/16 Creatinine getting better and trending down, now down to 1.38. DC IV fluids. (6) Smoking addiction ICD Code: F17.200 Status: Acute Plan: Continue nicotine patch, the patient has been counseled on smoking cessation. (7) Uncontrolled hypertension ICD Code: I10 Status: Acute Plan: BP still uncontrolled, increase Cardura dose to 4 mg po daily. Continue to monitor BP. Assessment and Plan GI prophylaxis: PPI DVT prophylaxis: SCDs, no chemical prophylaxis since patient is on aspirin and Plavix. Discharge Planning Possible discharge later today or in a.m. pending blood pressure improvement. Problem Qualifiers (1) Dyspnea: Qualified Code: R06.00 - Dyspnea, unspecified type Angel Casey MD Nov 27, 2016 10:04
[2016-11-27] MEDS: LEVOFLOXACIN 750 MG TAB PO SCH (12:00)
[2016-11-27 14:12] LABS: BICARBONATE 29.4 MEQ/L (21.0-32.0); POTASSIUM 3.9 MEQ/L (3.5-5.1)
--- NOTE | 2016-11-27 14:24 | RADRPT ---
EXAM DATE/TIME: 11/27/2016 10:20 [facility] COMPARISON: CHEST SINGLE AP, November 24, 2016, 4:31. INDICATIONS : Shortness of breath. MEDICAL HISTORY : Chronic obstructive pulmonary disease. SURGICAL HISTORY : Cardiac stents. ENCOUNTER: Subsequent ACUITY: 4 - 6 days PAIN SCORE: 0/10 LOCATION: Bilateral chest FINDINGS: PA lateral views of the chest demonstrate improved aeration. There is mild left blunting of the costo phrenic angle consistent with a small pleural effusion. The lungs are grossly clear. Heart size is mo derately enlarged and there is cephalization of pulmonary vasculature. Overlying cardiac leads are no allen. CONCLUSION: Radiographic evidence of congestive heart failure with small left-sided pleural effusion.. Breanna Jamil MD on November 27, 2016 at 12:15 Board Certified Radiologist. This report was verified electronically.
[2016-11-27] MEDS ORDERED: CARD4TAB2 PO (15:57)
[2016-11-27] MEDS ORDERED: PRED20 PO (15:57)
[2016-11-27] MEDS ORDERED: ASPI81TA11 PO (15:57)
[2016-11-27] MEDS ORDERED: PLAV75TA29 PO (15:57)
[2016-11-27] MEDS ORDERED: SYMB160A INH (15:57)
[2016-11-27] MEDS ORDERED: AMLO10 PO (15:57)
[2016-11-27] MEDS ORDERED: LEVA750T PO (15:57)
--- NOTE | 2016-11-27 16:01 | HHI.FF ---
Face to Face Verification Diagnosis: (1) COPD exacerbation (2) SHAISTA (acute kidney injury) (3) NSTEMI (non-ST elevated myocardial infarction) (4) Acute on chronic diastolic (congestive) heart failure (5) Uncontrolled hypertension (6) Congestive heart failure (7) Smoking addiction Physical Therapy Order: Improve ambulation, Strength and gait training Home Health Nursing Order: Signs/symptoms of disease process CHF education Medication education-adverse effect Nursing assessment with vital signs I have seen patient Cammie Bender on 11/27/16. My clinical findings support the need for the requested home health care services because: Patient has SOB Deconditioned w/ increased weakness Limited ability to care for self Need for psychosocial assistance I certify that my clinical findings support that this patient is homebound because: Hx COPD- exertion dyspnea/weakness Unsafe to leave home unassisted Need for psychosocial assistance Unable to use public transportation Angel Casey MD Nov 27, 2016 16:01
[2016-11-27] MEDS: MAGNESIUM HYDROXIDE SUSP 30 ML CUP PO PRN (17:20)
[2016-11-27] MEDS: MONTELUKAST SODIUM 10 MG TAB PO SCH (22:36)
[2016-11-27] MEDS: PRAVASTATIN SOD 80 MG TAB PO SCH (22:36)
[2016-11-27] MEDS: ALPRAZolam 0.25 MG TAB PO PRN (22:41)
[2016-11-28] VITALS (11 sets, daily range): BP systolic 140–184; BP diastolic 65–86; PULSE 46–58; RESP 16–20; TEMP 97.8–98.3; O2SAT 95–97
[2016-11-28] MEDS: INSULIN ASPART SUPPLEMENTAL SCALE SQ SCH ×2 (07:00→11:06)
[2016-11-28] MEDS: RESP: ALBUTEROL 2.5 MG/IPRATROPIUM 0.5 MG NEB (SCH) INH ×2 (08:09→12:00)
[2016-11-28] MEDS: NICOTINE 21 MG/24 HR PATCH TD SCH (08:13)
[2016-11-28] MEDS: MAGNESIUM HYDROXIDE SUSP 30 ML CUP PO PRN (08:13)
[2016-11-28] MEDS: REMOVE OLD NICODERM (NICOTINE) PATCH TD SCH (08:13)
[2016-11-28] MEDS: CARVEDILOL 6.25 MG TAB PO SCH (08:13)
[2016-11-28] MEDS: ASPIRIN EC 81 MG TABEC PO SCH (08:14)
[2016-11-28] MEDS: OXYBUTYNIN CHLORIDE 5 MG TAB PO SCH (08:14)
[2016-11-28] MEDS: LOSARTAN 50 MG TAB PO SCH (08:14)
[2016-11-28] MEDS: CITALOPRAM HYDROBROMIDE 20 MG TAB PO SCH (08:14)
[2016-11-28] MEDS: GABAPENTIN 100 MG CAP PO SCH (08:14)
[2016-11-28] MEDS: FAMOTIDINE 20 MG TAB PO SCH (08:14)
[2016-11-28] MEDS: DOCUSATE SODIUM 100 MG CAP PO SCH (08:15)
[2016-11-28] MEDS: SODIUM CHLORIDE 0.9% FLUSH 5 ML FLUSH IVF SCH (08:15)
[2016-11-28] MEDS: CLOPIDOGREL 75 MG TAB PO SCH (08:15)
[2016-11-28] MEDS: BUDESONIDE-FORMOTEROL 160/4.5 MCG INHALER INH SCH (08:16)
[2016-11-28] MEDS ORDERED: predniSONE 10 MG TAB PO SCH (09:00)
[2016-11-28] MEDS ORDERED: DOXAZOSIN MESYLATE 4 MG TAB PO SCH (09:00)
[2016-11-28] MEDS ORDERED: CARV3.12 PO (09:57)
--- NOTE | 2016-11-28 10:14 | HHI.DS ---
Discharge Summary Admission Date Nov 23, 2016 at 13:09 Discharge Date: Nov 28, 2016 Admitting Diagnosis new onset congestive heart failure, elevated troponin, dyspnea (1) Dyspnea ICD Code: R06.00 Diagnosis: Principal (2) Acute on chronic diastolic (congestive) heart failure ICD Code: I50.33 Diagnosis: Principal (3) NSTEMI (non-ST elevated myocardial infarction) ICD Code: I21.4 Diagnosis: Principal (4) COPD exacerbation ICD Code: J44.1 Diagnosis: Principal (5) SHAISTA (acute kidney injury) ICD Code: N17.9 Diagnosis: Principal (6) Smoking addiction ICD Code: F17.200 Diagnosis: Principal (7) Uncontrolled hypertension ICD Code: I10 Diagnosis: Principal Procedures sp Cardiac Catheterization on 11/24/16 with 2 drug-eluting stents placed. Brief History - From Admission This is a pleasant 71 year-old female with past medical history of COPD, history of stroke, type 2 diabetes, hypertension who presented to the ER today complaining of a one-day history of gradually increasing shortness of breath. The patient states that last night she noticed that she started to feel short of breath and this increased overnight until she was moderately short of breath today. She does have a chronic cough which she states currently is productive of ricci sputum. She denies fever or chills. She denies wheezing. She denies any chest pain or chest pressure. However she does state several weeks ago she had transient chest pain which was retrosternal and lasted only a few seconds and she didn't think anything of it. She denies known history of CHF. No recent pedal edema. No provocative or alleviating factors for the shortness of breath. In the emergency department chest x-ray revealed diffuse interstitial densities and airspace disease of the right lower lobe. BNP was elevated at 875. Troponin was elevated at 0.3. The patient was given 20 mg of IV Lasix and has been started on nitroglycerin and heparin drip. The ER physician discussed with the on-call specialist wound care Dr. Trivedi who requested transfer to the main facility for consideration of left heart catheterization. CBC/BMP: 11/26/16 0456 11/27/16 1329 Significant Findings Laboratory Tests Test 11/25/16 11/25/16 11/26/16 11/27/16 10:50 14:46 04:56 13:29 Red Blood Count 3.07 MIL/MM3 3.43 MIL/MM3 (4.00-5.30) (4.00-5.30) Hemoglobin 9.6 GM/DL 10.7 GM/DL (11.6-15.3) (11.6-15.3) Hematocrit 28.4 % 31.2 % (35.0-46.0) (35.0-46.0) Blood Gas HCO3 27 mmol/L (22-26) Blood Gas Base Excess 2.5 mmol/L (-2-2) Arterial Blood Partial 45 mmHg (38-42) Pressure CO2 Blood Gas Hemoglobin 10.7 G/DL (12.0-16.0) Potassium Level 3.2 MEQ/L (3.5-5.1) Blood Urea Nitrogen 24 MG/DL (7-18) 25 MG/DL (7-18) Creatinine 1.38 MG/DL 1.44 MG/DL (0.50-1.00) (0.50-1.00) Estimat Glomerular Filtration 38 ML/MIN (>89) 36 ML/MIN (>89) Rate Random Glucose 145 MG/DL (74-106) Imaging Last Impressions Chest X-Ray 11/27/16 0800 Signed Impressions: Service Date/Time: Sunday, November 27, 2016 10:20 - CONCLUSION: Radiographic evidence of congestive heart failure with small left-sided pleural effusion.. Breanna Jamil MD PE at Discharge GENERAL: nad, sitting, nad - no respiratory distress SKIN: Warm and dry. HEAD: Atraumatic. Normocephalic. EYES: Pupils equal and round. No scleral icterus. No injection or drainage. ENT: No nasal bleeding or discharge. Mucous membranes pink and moist. NECK: Trachea midline. No JVD. CARDIOVASCULAR: Regular rate and rhythm. RESPIRATORY: No accessory muscle use. Clear to auscultation. Breath sounds equal bilaterally. GASTROINTESTINAL: Abdomen soft, non-tender, nondistended. Hepatic and splenic margins not palpable. MUSCULOSKELETAL: Extremities without clubbing, cyanosis, or edema. No obvious deformities. NEUROLOGICAL: Awake and alert. No obvious cranial nerve deficits. Motor grossly within normal limits. Five out of 5 muscle strength in the arms and legs. Normal speech. PSYCHIATRIC: Appropriate mood and affect; insight and judgment normal. Pt update on day of discharge Patient denies cp/sob. BP slightly higher yesterday. today much better but heart rate going into the low 50's and patient asymptomatic. I will decrease the Coreg dose to 3.125 mg po bid upon discharge. Hospital Course (1) Dyspnea Dyspnea resolved likely due to CHF exacerbation and pneumonia with COPD exacerbation as well. Initial chest x-ray showed some interstitial and alveolar infiltrates. Repeat chest x-ray which was personally reviewed by me showed improvement of infiltrates which was not constituting. Patient has been treated with Lasix. Echocardiogram was done and showed a systolic function which was normal with an EF in the range of 55-60% but the cavity size was mildly dilated. BNP on presentation was 875. (2) Acute on chronic diastolic (congestive) heart failure Plan: As stated above. Now resolved. Lasix held, patient started on gentle IV fluids due to rising creatinine. Now resolved and stable. (3) NSTEMI (non-ST elevated myocardial infarction) Status post cardiac catheterization on 11/24/16 with placement of 2 drug-eluting stents. Continue aspirin and Plavix. Appreciate cardiology recommendations. Low cholesterol diet, continue statin, beta sam, ARTURO inhibitor. The patient will follow-up as an outpatient in [address] Trivedi. (4) COPD exacerbation Patient on IV Solu-Medrol, I will add oral Levaquin. Continue with inhaled steroids. Continue inhaled steroids. Appreciate pulmonary recommendations. Management as per pulmonary. IV steroids discontinued - now on prednisone (5) SHAISTA (acute kidney injury) This is probably acute kidney injury on chronic kidney disease stage III. The patient thinks that she might have had said that she had some kidney failure in the past. Unfortunately we do not have any previous medical records to which we can compare the creatinine. Creatinine slightly worst up to 1.4 from 1.3. I will hold diuretics and start the patient on gentle IV fluids and continue to monitor BUN/creatinine, strict I's and O's, avoid nephrotoxins. 11/26/16 Creatinine getting better and trending down, now down to 1.38. DC IV fluids. (6) Smoking addiction Plan: Continue nicotine patch, the patient has been counseled on smoking cessation. (7) Uncontrolled hypertension Plan: BP still uncontrolled, increase Cardura dose to 4 mg po daily. Continue to monitor BP. GI prophylaxis: PPI DVT prophylaxis: SCDs, no chemical prophylaxis since patient is on aspirin and Plavix. Pt Condition on Discharge: Stable Discharge Disposition: Discharge to SNF Discharge Time: > 30 minutes Discharge Instructions DIET: Follow Instructions for: Heart Healthy Diet Activities you can perform: Regular-No Restrictions Activities to Avoid: Prolonged Standing, Strenuous Activity Follow up Referrals: Cardiology - 2 Weeks with Marvel Babcock MD PCP Follow-up Pulmonology - 2 Weeks with Melida Garcia MD New Medications: Carvedilol (Carvedilol) 3.125 Mg Tab 3.125 MG PO BID #60 Ref 0 TAB Prednisone (Prednisone) 20 Mg Tab 20 MG PO DIRECTED 40 MG twice a day x 3 days, then 20 MG daily x 3 days, then 10 MG daily x 3 days Inflammation #11 Ref 0 TAB Amlodipine (Norvasc) 10 Mg Tab 10 MG PO DAILY Blood Pressure Management #[address] (Aspirin EC) 81 Mg Tabdr 162 MG PO DAILY cad #30 TAB Budesonide-Formoterol Inh (Symbicort Inh) 160-4.5 Mcg/Act Aero 1 PUFF INH Q12HR Shortness of Breath #1 INHALER Clopidogrel (Plavix) 75 Mg Tab 75 MG PO DAILY cad #30 TAB Doxazosin (Cardura) 4 Mg Tab 4 MG PO DAILY Blood Pressure Management #30 TAB Levofloxacin (Levaquin) 750 Mg Tab 750 MG PO Q48H Infection #5 TAB Continued Medications: Alprazolam (Xanax) 0.25 Mg Tab 0.25 MG PO BID PRN ANXIETY Ref 0 TAB Citalopram (Citalopram) 20 Mg Tab 20 MG PO DAILY Control Depression #30 Ref 0 TAB Gabapentin (Gabapentin) 100 Mg Cap 100 MG PO BID #30 Ref 0 CAP Ipratropium-Albuterol Neb (Duoneb) 0.5-2.5 Mg/3 Ml Neb 1 NEBULE INH Q6HR NEB Breathing Treatment #120 Ref 0 NEBULE Losartan (Losartan) 100 Mg Tab 100 MG PO DAILY Blood Pressure Management #30 Ref 0 TAB Metformin (Metformin) 850 Mg Tab 850 MG PO BID With a meal Blood Sugar Management Ref 0 TAB Montelukast (Montelukast) 10 Mg Tab 10 MG PO HS #30 Ref 0 TAB Oxybutynin (Ditropan) 5 Mg Tab 5 MG PO Q12HR Urinary Symptom Managemen #60 Ref 0 TAB Pioglitazone (Pioglitazone) 45 Mg Tab 45 MG PO DAILY Blood Sugar Management #30 Ref 0 TAB Ranitidine (Ranitidine) 150 Mg Tab 150 MG PO DAILY Heartburn Management #30 Ref 0 TAB Simvastatin (Simvastatin) 40 Mg Tab 40 MG PO HS Cholesterol Management #30 Ref 0 TAB Discontinued Medications: Carvedilol (Carvedilol) 6.25 Mg Tab 6.25 MG PO BID #60 Ref 0 TAB Meloxicam (Meloxicam) 7.5 Mg Tab 7.5 MG PO BID Arthritis Pain Ref 0 TAB Angel Casey MD Nov 28, 2016 10:14
--- NOTE | 2016-12-01 08:47 | RSPPFT ---
DATE OF PROCEDURE: 11/27/16 COMMENTS: VOLUMES DYNAMIC: FVC and FEV1 mildly reduced. FLOWS: FEV1% normal; FEF 25-75 moderately reduced. IMPRESSION: Mild obstructive ventilatory defect with no significant improvement post-bronchodilator.
== END 2016-11-28 14:53 | DRG 246 ==
LOC: PHED 10:46 → PHEDA 13:09 → HCIS 19:51
PROVIDERS: ADMIT Hospitalist; ATTEND Hospitalist
PROC: 4A023N7 Measurement of Cardiac Sampling and Pressure, Left Heart, Percutaneous Approach (ICD-10-PCS; 2016-11-24)
PROC: B2111ZZ Fluoroscopy of Multiple Coronary Arteries using Low Osmolar Contrast (ICD-10-PCS; 2016-11-24)
PROC: B2151ZZ Fluoroscopy of Left Heart using Low Osmolar Contrast (ICD-10-PCS; 2016-11-24)
PROC: 027135Z Dilation of Coronary Artery, Two Arteries with Two Drug-eluting Intraluminal Devices, Percutaneous Approach (ICD-10-PCS; principal; 2016-11-24 14:00)
DX: I21.4 Non-ST elevation (NSTEMI) myocardial infarction (principal); I50.33 Acute on chronic diastolic (congestive) heart failure; N17.9 Acute kidney failure, unspecified; J18.9 Pneumonia, unspecified organism; I13.0 Hypertensive heart and chronic kidney disease with heart failure and stage 1 through stage 4 chronic kidney disease, or unspecified chronic kidney disease; N18.3 Chronic kidney disease, stage 3 (moderate); E11.22 Type 2 diabetes mellitus with diabetic chronic kidney disease; J44.1 Chronic obstructive pulmonary disease with (acute) exacerbation; I73.9 Peripheral vascular disease, unspecified; I25.10 Atherosclerotic heart disease of native coronary artery without angina pectoris; E87.6 Hypokalemia; I44.7 Left bundle-branch block, unspecified; E78.5 Hyperlipidemia, unspecified; K21.9 Gastro-esophageal reflux disease without esophagitis; F17.210 Nicotine dependence, cigarettes, uncomplicated; F32.9 Major depressive disorder, single episode, unspecified; Z86.73 Personal history of transient ischemic attack (TIA), and cerebral infarction without residual deficits; Z95.820 Peripheral vascular angioplasty status with implants and grafts; Z79.84 Long term (current) use of oral hypoglycemic drugs
CPT/HCPCS: 36600; 71010; 71020; 80048; 80053; 80061; 82550; 82805; 82948; 83735; 83880; 84484; 85002; 85025; 85027; 85610; 85730; 92928; 92929; 93005; 93306; 93458; 94060; 94150; 94640; 94664; 96365; 96375; C1725; C1769; C1874; C1887; C1893; J0360; J1644; J1815; J1940; J2250; J2270; J2920; J2930; J3010; J7030; J7512; Q9967